=== PATIENT | female | born 1945 | race Caucasian/White ===

== ENCOUNTER 2019-03-13 12:53 | Inpatient (IN) | payer MEDICARE ==
[~2019-03-13] VITALS: Ht 154.9 cm; Wt 68.0 kg
[~2019-03-13 12:53] MED LIST: ONDA4TAB6 PO; SACC250C PO
[2019-03-13 14:09] LABS: BASOPHILS % (AUTO) 0.5 % (0-1); EOSINOPHILS # (AUTO) 0.3 X10'3 (0-0.9); EOSINOPHILS % (AUTO) 4.8 % (0-6); HEMATOCRIT 38.1 % (35.0-45.0); HEMOGLOBIN 12.9 g/dl (12.0-16.0); LYMPHOCYTES # (AUTO) 1.3 X10'3 (1.1-4.8); LYMPHOCYTES % (AUTO) 21.1 % (21-51); MEAN CORPUSCULAR HEMOGLOBIN 32.8 PG (27.0-31.0); MEAN CORPUSCULAR HGB CONC 33.8 g/dL (33.0-36.5); MEAN CORPUSCULAR VOLUME 97.1 FL (78-98); MEAN PLATELET VOLUME 8.2 FL (7.4-10.4); MONOCYTES # (AUTO) 0.5 X10'3 (0-0.9); NEUTROPHILS % (AUTO) 65.6 % (42-75); PLATELET COUNT 236 X10'3 (140-440); RED BLOOD COUNT 3.92 X10'6 (4.20-5.60); RED CELL DISTRIBUTION WIDTH 13.3 % (11.5-14.5); WHITE BLOOD COUNT 6.1 X10'3 (4.5-11.0)
[2019-03-13 14:16] LABS: ALANINE AMINOTRANSFERASE 30 U/L (12-78); ALBUMIN 3.7 G/DL (3.4-5.0); ALBUMIN/GLOBULIN RATIO 0.8 (1.1-1.5); ALKALINE PHOSPHATASE 72 IU/L (46-116); ANION GAP 7 (8-16); ASPARTATE AMINO TRANSFERASE 21 U/L (10-37); BILIRUBIN,TOTAL 0.3 MG/DL (0.1-1.0); BLOOD UREA NITROGEN 22 MG/DL (7-18); BUN/CREATININE RATIO 23.2 (6.6-38.0); CALCIUM 9.5 MG/DL (8.5-10.1); CHLORIDE 105 MMOL/L (99-107); CREATININE 0.95 MG/DL (0.40-0.90); GLUCOSE 115 MG/DL (70-104); POTASSIUM 3.9 MMOL/L (3.5-5.1); SODIUM 144 MMOL/L (135-145); TOTAL CARBON DIOXIDE 32.1 MMOL/L (24-32); TOTAL PROTEIN 8.2 G/DL (6.4-8.2); eGFR 58 ML/MIN
[2019-03-13 14:19] LABS: PARTIAL THROMBOPLASTIN TIME 27 SECONDS (22-32)
[2019-03-13] MEDS ORDERED: famotidine/PF 10 mg/ml inj IV ONE (14:40)
[2019-03-13] MEDS ORDERED: aspirin 325mg tablet PO ONE (14:40)
[2019-03-13] MEDS ORDERED: normal saline 1000ml 1,000 ML IV ONE (14:40)
[2019-03-13] MEDS ORDERED: mag hydrox/Alum hydrox/simeth 30ml oral suspension PO PRN (15:00)
[2019-03-13] MEDS ORDERED: magnesium hydroxide 30ml (MOM) UD suspension PO PRN (15:00)
[2019-03-13] MEDS ORDERED: acetaminophen 325mg tablet PO PRN (15:00)
[2019-03-13] MEDS ORDERED: ondansetron/PF 4mg/2ml inj IV PRN (15:00)
[2019-03-13] MEDS ORDERED: SPIR25TA5 PO (15:11)
[2019-03-13] MEDS ORDERED: FURO40TA4 PO (15:11)
[2019-03-13] MEDS ORDERED: OMEP-50 PO (15:11)
[2019-03-13] MEDS ORDERED: SERT100T10 PO (15:11)
[2019-03-13] MEDS ORDERED: MONT10TA24 PO (15:11)
[2019-03-13] MEDS ORDERED: LOSA100T57 PO (15:11)
[2019-03-13] MEDS ORDERED: CARV6.253 PO (15:11)
[2019-03-13] MEDS ORDERED: aminophylline 250mg/10ml inj. IV PRN (15:30)
[2019-03-13] MEDS ORDERED: metoprolol tartrate 1mg/ml inj IV PRN (15:30)
[2019-03-13] MEDS ORDERED: nitroGLYCERIN 0.4mg SUBLingual tab SL PRN (15:30)
[2019-03-13] MEDS ORDERED: regadenoson 0.4mg/5ml syringe IV PRN (15:30)
[2019-03-13] MEDS ORDERED: LORazepam 2 mg/ml vial IV PRN (15:40)
[2019-03-13] MEDS ORDERED: LORazepam 1 MG tablet PO PRN (15:40)
--- NOTE | 2019-03-13 17:50 | NUR ---
Patient in room ED 12. I have received report from Cem DAN and had the opportunity to ask questions and assume patient care.
[2019-03-13 18:00] VITALS: BP 164/78
--- NOTE | 2019-03-13 18:07 | NUR ---
Received patient from ED. Patient vitals taken and stable. Patient placed on tele monitor. Oriented to room and call light.
--- NOTE | 2019-03-13 18:30 | NUR ---
Patient in room PCU 3013. I have received report from Ayaka DAN and had the opportunity to ask questions and assume patient care with Phylicia DAN.
[2019-03-13] MEDS: carvedilol 6.25mg tablet PO SCH (21:10)
[2019-03-13 22:00] VITALS: BP 138/60
[2019-03-14] VITALS (18 sets, daily range): BP systolic 123–163; BP diastolic 50–100
[2019-03-14 02:45] LABS: BASOPHILS % (AUTO) 0.7 % (0-1); EOSINOPHILS # (AUTO) 0.3 X10'3 (0-0.9); HEMATOCRIT 33.5 % (35.0-45.0); HEMOGLOBIN 11.5 g/dl (12.0-16.0); LYMPHOCYTES # (AUTO) 1.5 X10'3 (1.1-4.8); LYMPHOCYTES % (AUTO) 27.5 % (21-51); MEAN CORPUSCULAR HEMOGLOBIN 32.9 PG (27.0-31.0); MEAN CORPUSCULAR HGB CONC 34.4 g/dL (33.0-36.5); MEAN CORPUSCULAR VOLUME 95.7 FL (78-98); MEAN PLATELET VOLUME 8.1 FL (7.4-10.4); MONOCYTES # (AUTO) 0.5 X10'3 (0-0.9); MONOCYTES % (AUTO) 9.8 % (2-12); PLATELET COUNT 198 X10'3 (140-440); RED BLOOD COUNT 3.51 X10'6 (4.20-5.60); RED CELL DISTRIBUTION WIDTH 13.2 % (11.5-14.5); WHITE BLOOD COUNT 5.3 X10'3 (4.5-11.0)
[2019-03-14 03:00] LABS: ALANINE AMINOTRANSFERASE 26 U/L (12-78); ALBUMIN/GLOBULIN RATIO 0.8 (1.1-1.5); ALKALINE PHOSPHATASE 55 IU/L (46-116); ANION GAP 7 (8-16); ASPARTATE AMINO TRANSFERASE 17 U/L (10-37); BILIRUBIN,TOTAL 0.3 MG/DL (0.1-1.0); BLOOD UREA NITROGEN 21 MG/DL (7-18); BUN/CREATININE RATIO 23.1 (6.6-38.0); CALCIUM 8.5 MG/DL (8.5-10.1); CHLORIDE 108 MMOL/L (99-107); CREATININE 0.91 MG/DL (0.40-0.90); GLUCOSE 92 MG/DL (70-104); POTASSIUM 3.8 MMOL/L (3.5-5.1); SODIUM 143 MMOL/L (135-145); TOTAL CARBON DIOXIDE 27.7 MMOL/L (24-32); TOTAL PROTEIN 6.6 G/DL (6.4-8.2); eGFR 61 ML/MIN
[2019-03-14 03:03] LABS: AMYLASE 15 U/L (25-115); LIPASE 127 U/L (73-393); MAGNESIUM 1.6 MG/DL (1.5-2.4); PHOSPHORUS 3.5 MG/DL (2.3-4.5)
--- NOTE | 2019-03-14 05:53 | NUR ---
Orientee documentation: I have reviewed and agree with all interventions, meds given, assessments performed and documented by Phylicia DAN.
--- NOTE | 2019-03-14 06:00 | NUR ---
Patient in room PCU 3013. I have received report from Ghislaine and had the opportunity to ask questions and assume patient care.
--- NOTE | 2019-03-14 06:29 | NUR ---
Problems reprioritized. Patient report given, questions answered & plan of care reviewed with Ayaka DAN and Rita DAN.
--- NOTE | 2019-03-14 06:30 | NUR ---
Problems reprioritized. Patient report given, questions answered & plan of care reviewed with Rita DAN.
[2019-03-14] MEDS: pantoprazole 40mg Tablet.DR PO SCH ×2 (07:40→08:00)
[2019-03-14] MEDS: montelukast 10mg tablet PO SCH (07:40)
[2019-03-14] MEDS: sertraline 50mg tablet PO SCH (07:40)
[2019-03-14] MEDS: losartan 50mg tablet PO SCH (08:00)
[2019-03-14] MEDS: enoxaparin 40mg/0.4ml syringe SUBCUT SCH (08:00)
[2019-03-14] MEDS: spironolactone 25 MG tablet PO SCH (08:00)
[2019-03-14] MEDS: carvedilol 6.25mg tablet PO SCH ×2 (08:00→19:41)
[2019-03-14] MEDS: furosemide 40mg tablet PO SCH (08:00)
--- NOTE | 2019-03-14 18:19 | NUR ---
Problems reprioritized. Patient report given, questions answered & plan of care reviewed with Raymundo & Ansley RN. Patient stable at time of transfer of care.
--- NOTE | 2019-03-14 19:14 | NUR ---
Patient in room PCU 3013b. I have received report from SY Marley and Rita RN and had the opportunity to ask questions and assume patient care. Patient awake for bedside report with family in room. Patient on room air and SL with 20G in right AC. Will continue to monitor closely.
[2019-03-15] VITALS (17 sets, daily range): BP systolic 125–155; BP diastolic 53–71
[2019-03-15 05:54] LABS: BASOPHILS % (AUTO) 0.8 % (0-1); EOSINOPHILS # (AUTO) 0.3 X10'3 (0-0.9); HEMATOCRIT 35.3 % (35.0-45.0); HEMOGLOBIN 12.1 g/dl (12.0-16.0); LYMPHOCYTES # (AUTO) 1.6 X10'3 (1.1-4.8); LYMPHOCYTES % (AUTO) 28.7 % (21-51); MEAN CORPUSCULAR HGB CONC 34.1 g/dL (33.0-36.5); MEAN CORPUSCULAR VOLUME 96.6 FL (78-98); MEAN PLATELET VOLUME 8.1 FL (7.4-10.4); MONOCYTES # (AUTO) 0.6 X10'3 (0-0.9); MONOCYTES % (AUTO) 10.7 % (2-12); NEUTROPHILS % (AUTO) 54.8 % (42-75); PLATELET COUNT 209 X10'3 (140-440); RED BLOOD COUNT 3.66 X10'6 (4.20-5.60); RED CELL DISTRIBUTION WIDTH 13.2 % (11.5-14.5); WHITE BLOOD COUNT 5.4 X10'3 (4.5-11.0)
[2019-03-15 06:20] LABS: ALANINE AMINOTRANSFERASE 25 U/L (12-78); ALBUMIN 2.9 G/DL (3.4-5.0); ALBUMIN/GLOBULIN RATIO 0.8 (1.1-1.5); ALKALINE PHOSPHATASE 55 IU/L (46-116); AMYLASE 16 U/L (25-115); ANION GAP 7 (8-16); ASPARTATE AMINO TRANSFERASE 16 U/L (10-37); BILIRUBIN,TOTAL 0.2 MG/DL (0.1-1.0); BLOOD UREA NITROGEN 17 MG/DL (7-18); BUN/CREATININE RATIO 22.4 (6.6-38.0); CHLORIDE 106 MMOL/L (99-107); CREATININE 0.76 MG/DL (0.40-0.90); GLUCOSE 112 MG/DL (70-104); LIPASE 169 U/L (73-393); PHOSPHORUS 3.9 MG/DL (2.3-4.5); POTASSIUM 4.1 MMOL/L (3.5-5.1); SODIUM 141 MMOL/L (135-145); TOTAL CARBON DIOXIDE 27.6 MMOL/L (24-32); TOTAL PROTEIN 6.7 G/DL (6.4-8.2); eGFR 75 ML/MIN
--- NOTE | 2019-03-15 06:26 | NUR ---
I have reviewed and agree with all interventions, assessments performed and documented by SY Panchal.
--- NOTE | 2019-03-15 06:26 | NUR ---
Problems reprioritized. Patient report given, questions answered & plan of care reviewed with Arleen DAN.
[2019-03-15 06:31] LABS: CALCIUM 9.7 MG/DL (8.5-10.1)
--- NOTE | 2019-03-15 06:39 | NUR ---
Patient in room PCU 3013. I have received report from Diana and had the opportunity to ask questions and assume patient care.
--- NOTE | 2019-03-15 06:40 | NUR ---
Patient in room PCU 3013. I have received report from Raymundo DAN and had the opportunity to ask questions and assume patient care. Patient awake in bed with no complaints at this time. All immediate needs met.
[2019-03-15] MEDS: montelukast 10mg tablet PO SCH (07:22)
[2019-03-15] MEDS: losartan 50mg tablet PO SCH (07:22)
[2019-03-15] MEDS: pantoprazole 40mg Tablet.DR PO SCH ×2 (07:22→08:00)
[2019-03-15] MEDS: furosemide 40mg tablet PO SCH (07:23)
[2019-03-15] MEDS: carvedilol 6.25mg tablet PO SCH ×2 (07:23→20:27)
[2019-03-15] MEDS: spironolactone 25 MG tablet PO SCH (07:24)
[2019-03-15] MEDS: sertraline 50mg tablet PO SCH (07:24)
[2019-03-15] MEDS: enoxaparin 40mg/0.4ml syringe SUBCUT SCH (07:26)
--- NOTE | 2019-03-15 12:16 | NUR ---
Paged Dr. Jhaveri: PAGER ID: [phone] MESSAGE: RE: Marisol Cruz [id number]. Patient complaining of headache. No orders for pain meds. Can we order Tylenol for pain? Thank you. Arleen
--- NOTE | 2019-03-15 12:19 | NUR ---
New order from Dr. Jhaveri: 650 mg PO tylenol for pain ONCE>
[2019-03-15] MEDS: acetaminophen 325mg tablet PO PRN ×2 (12:39→18:57)
[2019-03-15] MEDS ORDERED: nitroGLYCERIN-Tridil 50MG/D5W 250 ML IV ONE (15:12)
[2019-03-15] MEDS ORDERED: iohexol 350 MG/ML 50ML vial IV ONE ×2 (15:12→17:15)
[2019-03-15] MEDS ORDERED: heparin 1,000unit/ml 10ml vial 10 ML ONE (15:12)
[2019-03-15] MEDS ORDERED: LIDOcaine 1% (10mg/ml)w/preservative injection 20ml MDV ONE (15:12)
[2019-03-15] MEDS ORDERED: iohexol 350MG/ML 100ml bottle IV ONE (15:12)
[2019-03-15] MEDS ORDERED: fentaNYL/PF 50MCG/1 ML 2ML syringe ONE (16:46)
[2019-03-15] MEDS ORDERED: midazolam 2 mg/2 ml injection ONE (16:46)
[2019-03-15] MEDS ORDERED: normal saline 1000ml 1,000 ML IV ONE (18:10)
--- NOTE | 2019-03-15 18:30 | NUR ---
Problems reprioritized. Patient report given, questions answered & plan of care reviewed with Raymundo DAN. Patient stable at transfer of care.
--- NOTE | 2019-03-15 18:49 | NUR ---
Orientee documentation: I have reviewed and agree with all interventions, assessments performed and documented by Linda DAN. Orientee Medication Administration: For this medication-pass time frame, all medication were reviewed, dispensed, administered and documented per hospital policy by Linda DAN.
[2019-03-15 19:36] LABS: ISTAT Hct MIX 35 %PCV (35-48); ISTAT O2 SATURATION MIX VENOUS 70 % (60-80); ISTAT SOURCE MIX
[2019-03-15] MEDS ORDERED: acetaminophen 325mg tablet PO PRN (20:00)
--- NOTE | 2019-03-15 21:35 | NUR ---
Patient in room PCU 3013b. I have received report from SY Bacon and had the opportunity to ask questions and assume patient care. Patient awake for bedside report and on room air. 100 mL/NS infusing per provider order. Right cardiac catheterization dressing asymptomatic with no s/s of bleeding or bruising. Dorsalis pedis pulses palpable with good capillary refill. Family at bedside. Will continue to monitor closely.
[2019-03-15] MEDS ORDERED: HYDROcodone/acetaminophen 5mg/325mg tablet PO PRN (22:40)
--- NOTE | 2019-03-16 00:04 | NUR ---
Patient sat up at 2340. No s/s of bleeding or bruising at cath site. Dorsalis pedis pulses palpable. Patient alert and oriented with complaints of minor pain. Will continue to monitor closely.
[2019-03-16 00:30] VITALS: BP 110/56
[2019-03-16 03:00] VITALS: BP 110/56
[2019-03-16 06:00] VITALS: BP 144/70
--- NOTE | 2019-03-16 06:00 | NUR ---
Patient in room PCU 3013. I have received report from Raymundo DAN and had the opportunity to ask questions and assume patient care.
[2019-03-16 06:03] LABS: BASOPHILS % (AUTO) 0.5 % (0-1); EOSINOPHILS # (AUTO) 0.2 X10'3 (0-0.9); HEMATOCRIT 34.4 % (35.0-45.0); HEMOGLOBIN 11.7 g/dl (12.0-16.0); LYMPHOCYTES # (AUTO) 1.1 X10'3 (1.1-4.8); MEAN CORPUSCULAR HEMOGLOBIN 33.2 PG (27.0-31.0); MEAN CORPUSCULAR HGB CONC 34.1 g/dL (33.0-36.5); MEAN CORPUSCULAR VOLUME 97.4 FL (78-98); MONOCYTES # (AUTO) 0.5 X10'3 (0-0.9); MONOCYTES % (AUTO) 7.7 % (2-12); NEUTROPHILS # (AUTO) 5.1 X10'3 (1.8-7.7); NEUTROPHILS % (AUTO) 72.8 % (42-75); PLATELET COUNT 193 X10'3 (140-440); RED BLOOD COUNT 3.53 X10'6 (4.20-5.60)
[2019-03-16 06:39] LABS: ALANINE AMINOTRANSFERASE 25 U/L (12-78); ALBUMIN 2.9 G/DL (3.4-5.0); ALBUMIN/GLOBULIN RATIO 0.8 (1.1-1.5); ALKALINE PHOSPHATASE 48 IU/L (46-116); AMYLASE 14 U/L (25-115); ANION GAP 7 (8-16); ASPARTATE AMINO TRANSFERASE 16 U/L (10-37); BILIRUBIN,TOTAL 0.3 MG/DL (0.1-1.0); BLOOD UREA NITROGEN 12 MG/DL (7-18); BUN/CREATININE RATIO 17.4 (6.6-38.0); CALCIUM 8.5 MG/DL (8.5-10.1); CHLORIDE 110 MMOL/L (99-107); CHOL/HDL RATIO 3.9 (0.00-4.99); CHOLESTEROL 221 MG/DL (0-200); CREATININE 0.69 MG/DL (0.40-0.90); GLUCOSE 93 MG/DL (70-104); HDL CHOLESTEROL 57 MG/DL (35-60); LDL CHOLESTEROL 146 MG/DL (50-100); LIPASE 103 U/L (73-393); MAGNESIUM 1.7 MG/DL (1.5-2.4); PHOSPHORUS 3.4 MG/DL (2.3-4.5); POTASSIUM 3.8 MMOL/L (3.5-5.1); SODIUM 144 MMOL/L (135-145); TOTAL CARBON DIOXIDE 27.4 MMOL/L (24-32); TOTAL PROTEIN 6.5 G/DL (6.4-8.2); TRIGLYCERIDES 114 MG/DL (20-135); eGFR 84 ML/MIN
--- NOTE | 2019-03-16 06:53 | NUR ---
Problems reprioritized. Patient report given, questions answered & plan of care reviewed with SY Campos and SY Guajardo.
[2019-03-16] MEDS: pantoprazole 40mg Tablet.DR PO SCH ×2 (07:54→08:00)
[2019-03-16] MEDS: carvedilol 6.25mg tablet PO SCH (07:55)
[2019-03-16] MEDS: spironolactone 25 MG tablet PO SCH (07:55)
[2019-03-16] MEDS: montelukast 10mg tablet PO SCH (07:56)
[2019-03-16] MEDS: furosemide 40mg tablet PO SCH (07:56)
[2019-03-16] MEDS: losartan 50mg tablet PO SCH (07:56)
[2019-03-16] MEDS: sertraline 50mg tablet PO SCH (07:56)
--- NOTE | 2019-03-16 09:25 | NUR ---
Per Dr Jhaveri ok to not give second dose of Protonix ordered in the am as patient was already receiving 40mg.
--- NOTE | 2019-03-16 10:07 | NUR ---
Patient discharged stable to home. Discharge instructions given to patient verbally and written. Patient verbalized understanding. Peripheral IV x2 removed, cannulas intact. Tele box removed and returned to television anchor room. All personal belongings returned to patient. At patient's request I attempted to make a follow-up appointment with Dr Herrera. Dr Herrera's office stated they would call patient to schedule appointment. Patient informed. No new prescriptions. Patient wheeled out by staff to private vehicle accompanied by friend.
[2019-03-16] MEDS ORDERED: ATOR20TA66 PO (11:18)
[2019-03-21 07:36] LABS: ISTAT HGB ART 11.9 g/dl (12.0-16.0); ISTAT Hct ART 35 %PCV (35-48); ISTAT O2 SATURATION ARTERIAL 93 % (95-98); ISTAT SOURCE ART
== END 2019-03-16 10:21 | disposition home or self-care (01) | DRG 287 ==
LOC: ER 12:54 → ED HOLD 15:48 → PCU 3S 18:05 → OBSVTOIN 03-14 22:30
PROVIDERS: ADMIT Family Medicine; ATTEND Family Medicine
PROC: 4A02XM4 Measurement of Cardiac Total Activity, External Approach (ICD-10-PCS; 2019-03-14)
PROC: 3E033HZ Introduction of Radioactive Substance into Peripheral Vein, Percutaneous Approach (ICD-10-PCS; 2019-03-14)
PROC: 4A023N8 Measurement of Cardiac Sampling and Pressure, Bilateral, Percutaneous Approach (ICD-10-PCS; principal; 2019-03-15)
PROC: B2111ZZ Fluoroscopy of Multiple Coronary Arteries using Low Osmolar Contrast (ICD-10-PCS; 2019-03-15)
PROC: B2151ZZ Fluoroscopy of Left Heart using Low Osmolar Contrast (ICD-10-PCS; 2019-03-15)
DX: R07.89 Other chest pain (principal); I42.9 Cardiomyopathy, unspecified; I25.10 Atherosclerotic heart disease of native coronary artery without angina pectoris; I10 Essential (primary) hypertension; I44.7 Left bundle-branch block, unspecified; K21.9 Gastro-esophageal reflux disease without esophagitis; Z82.49 Family history of ischemic heart disease and other diseases of the circulatory system; Z83.3 Family history of diabetes mellitus; Z85.3 Personal history of malignant neoplasm of breast; Z90.12 Acquired absence of left breast and nipple; Z88.8 Allergy status to other drugs, medicaments and biological substances; Z79.899 Other long term (current) drug therapy
CPT/HCPCS: 36415; 71045; 78452; 80053; 80061; 82150; 82803; 82948; 83690; 83735; 84100; 84484; 85014; 85025; 85610; 85730; 87081; 93005; 93017; 93460; 96374; 99152; 99153; 99285; A4620; A6258; A9500; C1760; C1769; G0378; J0280; J1644; J2001; J2250; J2785; J3010; J3490; Q9967

== ENCOUNTER 2019-03-17 08:32 | Inpatient (IN) | payer MEDICARE ==
[~2019-03-17] VITALS: Ht 162.6 cm; Wt 70.0 kg
[~2019-03-17 08:32] MED LIST changes: +ATOR20TA66 PO; +CARV6.253 PO; +FURO40TA4 PO; +LOSA100T57 PO; +MONT10TA24 PO; +OMEP-50 PO; -ONDA4TAB6 PO; -SACC250C PO; +SERT100T10 PO; +SPIR25TA5 PO
[2019-03-17 09:31] LABS: BASOPHILS % (AUTO) 0.2 % (0-1); EOSINOPHILS % (AUTO) 0 % (0-6); HEMOGLOBIN 12.3 g/dl (12.0-16.0); LYMPHOCYTES # (AUTO) 0.8 X10'3 (1.1-4.8); LYMPHOCYTES % (AUTO) 7.9 % (21-51); MEAN CORPUSCULAR HEMOGLOBIN 32.7 PG (27.0-31.0); MEAN CORPUSCULAR HGB CONC 34.1 g/dL (33.0-36.5); MEAN CORPUSCULAR VOLUME 95.9 FL (78-98); MEAN PLATELET VOLUME 7.7 FL (7.4-10.4); MONOCYTES # (AUTO) 0.6 X10'3 (0-0.9); MONOCYTES % (AUTO) 6.2 % (2-12); NEUTROPHILS # (AUTO) 8.9 X10'3 (1.8-7.7); NEUTROPHILS % (AUTO) 85.7 % (42-75); PLATELET COUNT 206 X10'3 (140-440); RED BLOOD COUNT 3.75 X10'6 (4.20-5.60); RED CELL DISTRIBUTION WIDTH 13.1 % (11.5-14.5); WHITE BLOOD COUNT 10.5 X10'3 (4.5-11.0)
[2019-03-17 09:44] LABS: PARTIAL THROMBOPLASTIN TIME 23 SECONDS (22-32)
[2019-03-17 09:53] LABS: ALANINE AMINOTRANSFERASE 29 U/L (12-78); ALBUMIN 3.2 G/DL (3.4-5.0); ALBUMIN/GLOBULIN RATIO 0.8 (1.1-1.5); ALKALINE PHOSPHATASE 52 IU/L (46-116); ANION GAP 9 (8-16); ASPARTATE AMINO TRANSFERASE 24 U/L (10-37); BILIRUBIN,TOTAL 0.4 MG/DL (0.1-1.0); BLOOD UREA NITROGEN 16 MG/DL (7-18); BUN/CREATININE RATIO 18.8 (6.6-38.0); CALCIUM 8.8 MG/DL (8.5-10.1); CHLORIDE 105 MMOL/L (99-107); CREATININE 0.85 MG/DL (0.40-0.90); GLUCOSE 99 MG/DL (70-104); POTASSIUM 3.9 MMOL/L (3.5-5.1); SODIUM 141 MMOL/L (135-145); TOTAL CARBON DIOXIDE 27.5 MMOL/L (24-32); TOTAL PROTEIN 7.3 G/DL (6.4-8.2); eGFR 66 ML/MIN
[2019-03-17 09:54] LABS: TROPONIN I 0.07 NG/ML (0.0-0.05)
--- NOTE | 2019-03-17 10:09 | NUR ---
TELE NEURO CONSULT INITIATED
--- NOTE | 2019-03-17 10:46 | NUR ---
NEURO TELE DONE.
[2019-03-17] MEDS ORDERED: iohexol 350MG/ML 100ml bottle IV ONE (11:47)
--- NOTE | 2019-03-17 12:27 | NUR ---
notified Gonzales that troponin was not ordered. New orders placed.
[2019-03-17] MEDS ORDERED: magnesium 4gm in 100ml NS 100 ML IV PRN (14:30)
[2019-03-17] MEDS ORDERED: potassium Cl 20 mEq SR tablet PO PRN ×2 (14:30)
[2019-03-17] MEDS ORDERED: ondansetron/PF 4mg/2ml inj IV PRN (14:30)
[2019-03-17] MEDS ORDERED: acetaminophen 325mg tablet PO PRN (14:30)
[2019-03-17] MEDS ORDERED: potassium CL 10mEq/100ml bag 100 ML IV PRN ×2 (14:30)
[2019-03-17] MEDS ORDERED: mag hydrox/Alum hydrox/simeth 30ml oral suspension PO PRN (14:30)
[2019-03-17] MEDS ORDERED: magnesium 2GM in 50ml NS 50 ML IV PRN (14:30)
[2019-03-17] MEDS ORDERED: docusate sod 100mg capsule PO PRN (14:30)
[2019-03-17 16:20] VITALS: BP 145/62
[2019-03-17 18:00] VITALS: BP 158/74
[2019-03-17 18:58] LABS: CLARITY,URINE CLEAR (Clear); COLOR,URINE YELLOW (Yellow); GLUCOSE, URINE NEGATIVE (Neg); KETONES,URINE 15 mg/dl (Neg); LEUKOCYTE ESTERASE ,URINE NEGATIVE (Neg); NITRITES, URINE NEGATIVE (Neg); OCCULT BLOOD,URINE TRACE-INTACT (Neg); PROTEIN,URINE NEGATIVE (Neg); UROBILINOGEN,URINE 0.2 E.U/dL (0.2-1.0)
--- NOTE | 2019-03-17 18:58 | NUR ---
Patient report given to Kia DAN
[2019-03-17 19:17] LABS: UA COLLECTION TYPE CLN CATCH MIDSTREAM
[2019-03-17 19:51] LABS: BACTERIA,URINE NONE SEEN /HPF (Neg); MUCUS STRANDS NONE SEEN /LPF (Neg); RBC,URINE 0-2 /HPF (0-2); SQUAMOUS EPITHELIAL CELL,UR FEW /LPF (FEW); WBC,URINE 0-4 /HPF (0-4)
[2019-03-17] MEDS: carvedilol 6.25mg tablet PO SCH (20:08)
[2019-03-17 20:17] VITALS: BP 137/66
--- NOTE | 2019-03-17 22:00 | NUR ---
pt c/o feeling flushed and seeing an "aura" of sparkles. 2 seconds of not talking, then patient able to talk - "I guess nothing is going to happen. I'm just so scared." reassurance given. no further aura noted
--- NOTE | 2019-03-17 23:01 | NUR ---
seal delivery vehicle team technician called with low oxygen saturation of 84-86%, and I discovered that her her oxygen NC was not in her nose so I re applied the nasal cannulae of oxygen into her nose and she went up to 93-95% spo2.
[2019-03-17 23:30] VITALS: BP 120/54
--- NOTE | 2019-03-18 01:19 | NUR ---
pt stated she lost her sense of smell a few years ago
[2019-03-18 02:00] VITALS: BP 122/49
[2019-03-18 06:00] VITALS: BP 139/61
--- NOTE | 2019-03-18 06:30 | NUR ---
reported to days. noted all tests done and pending results
[2019-03-18 06:43] LABS: BASOPHILS % (AUTO) 0.3 % (0-1); EOSINOPHILS # (AUTO) 0.1 X10'3 (0-0.9); EOSINOPHILS % (AUTO) 1.6 % (0-6); HEMATOCRIT 34.3 % (35.0-45.0); HEMOGLOBIN 11.7 g/dl (12.0-16.0); LYMPHOCYTES % (AUTO) 13.2 % (21-51); MEAN CORPUSCULAR HEMOGLOBIN 33.1 PG (27.0-31.0); MEAN CORPUSCULAR VOLUME 97.3 FL (78-98); MEAN PLATELET VOLUME 8.4 FL (7.4-10.4); MONOCYTES # (AUTO) 0.6 X10'3 (0-0.9); MONOCYTES % (AUTO) 8.1 % (2-12); NEUTROPHILS # (AUTO) 5.9 X10'3 (1.8-7.7); NEUTROPHILS % (AUTO) 76.8 % (42-75); PLATELET COUNT 183 X10'3 (140-440); RED BLOOD COUNT 3.53 X10'6 (4.20-5.60); RED CELL DISTRIBUTION WIDTH 13.2 % (11.5-14.5); WHITE BLOOD COUNT 7.7 X10'3 (4.5-11.0)
--- NOTE | 2019-03-18 06:59 | NUR ---
Patient in room ORTHO 4020. I have received report from Autumn DAN and had the opportunity to ask questions and assume patient care.
[2019-03-18 07:40] LABS: ALANINE AMINOTRANSFERASE 30 U/L (12-78); ALBUMIN 2.9 G/DL (3.4-5.0); ALBUMIN/GLOBULIN RATIO 0.7 (1.1-1.5); ALKALINE PHOSPHATASE 47 IU/L (46-116); ANION GAP 7 (8-16); ASPARTATE AMINO TRANSFERASE 33 U/L (10-37); BILIRUBIN,TOTAL 0.4 MG/DL (0.1-1.0); BLOOD UREA NITROGEN 9 MG/DL (7-18); BUN/CREATININE RATIO 12.2 (6.6-38.0); CALCIUM 8.8 MG/DL (8.5-10.1); CHLORIDE 107 MMOL/L (99-107); CHOL/HDL RATIO 3.5 (0.00-4.99); CHOLESTEROL 214 MG/DL (0-200); CREATININE 0.74 MG/DL (0.40-0.90); GLUCOSE 102 MG/DL (70-104); HDL CHOLESTEROL 62 MG/DL (35-60); LDL CHOLESTEROL 142 MG/DL (50-100); MAGNESIUM 2.1 MG/DL (1.5-2.4); POTASSIUM 3.7 MMOL/L (3.5-5.1); SODIUM 143 MMOL/L (135-145); TOTAL CARBON DIOXIDE 29.3 MMOL/L (24-32); TOTAL PROTEIN 6.8 G/DL (6.4-8.2); TRIGLYCERIDES 68 MG/DL (20-135); eGFR 77 ML/MIN
[2019-03-18] MEDS: K and/or MAG REPLACEMENT MC SCH (08:40)
[2019-03-18] MEDS: furosemide 40mg tablet PO SCH (08:42)
[2019-03-18] MEDS: montelukast 10mg tablet PO SCH (08:43)
[2019-03-18] MEDS: pantoprazole 40mg Tablet.DR PO SCH (08:43)
[2019-03-18] MEDS: sertraline 50mg tablet PO SCH (08:43)
[2019-03-18] MEDS: losartan 50mg tablet PO SCH (08:43)
[2019-03-18] MEDS: atorvastatin 20mg tablet PO SCH (08:43)
[2019-03-18] MEDS: carvedilol 6.25mg tablet PO SCH ×2 (08:44→21:33)
[2019-03-18] MEDS: spironolactone 25 MG tablet PO SCH (08:44)
[2019-03-18] MEDS: aspirin 325mg tablet, delayed-release (Ecotrin) PO SCH (08:44)
[2019-03-18 10:00] VITALS: BP 126/53
[2019-03-18 14:00] VITALS: BP 141/72
--- NOTE | 2019-03-18 18:22 | NUR ---
Problems reprioritized. Patient report given, questions answered & plan of care reviewed with Mansi DAN.
[2019-03-18 18:36] VITALS: BP_SYST 144; BP_DIAS 5; BP_DIAS 65
[2019-03-18] MEDS: levetiracetam 250mg tablet PO SCH (21:33)
[2019-03-18 22:04] VITALS: BP 134/53
[2019-03-19 02:00] VITALS: BP 125/60
[2019-03-19 06:00] VITALS: BP 147/70
--- NOTE | 2019-03-19 06:46 | NUR ---
Patient in room ORTHO 4020. I have received report from Autumn Howell and had the opportunity to ask questions and assume patient care.
[2019-03-19 07:03] LABS: BASOPHILS % (AUTO) 0.7 % (0-1); EOSINOPHILS # (AUTO) 0.4 X10'3 (0-0.9); EOSINOPHILS % (AUTO) 5.2 % (0-6); HEMATOCRIT 33.7 % (35.0-45.0); HEMOGLOBIN 11.7 g/dl (12.0-16.0); LYMPHOCYTES % (AUTO) 14.5 % (21-51); MEAN CORPUSCULAR HEMOGLOBIN 33.4 PG (27.0-31.0); MEAN CORPUSCULAR HGB CONC 34.7 g/dL (33.0-36.5); MEAN CORPUSCULAR VOLUME 96.2 FL (78-98); MEAN PLATELET VOLUME 8.2 FL (7.4-10.4); MONOCYTES # (AUTO) 0.6 X10'3 (0-0.9); MONOCYTES % (AUTO) 8.9 % (2-12); NEUTROPHILS # (AUTO) 4.9 X10'3 (1.8-7.7); NEUTROPHILS % (AUTO) 70.7 % (42-75); PLATELET COUNT 180 X10'3 (140-440); WHITE BLOOD COUNT 6.9 X10'3 (4.5-11.0)
[2019-03-19 07:20] LABS: ALANINE AMINOTRANSFERASE 30 U/L (12-78); ALBUMIN 2.8 G/DL (3.4-5.0); ALBUMIN/GLOBULIN RATIO 0.7 (1.1-1.5); ALKALINE PHOSPHATASE 47 IU/L (46-116); ANION GAP 7 (8-16); ASPARTATE AMINO TRANSFERASE 24 U/L (10-37); BILIRUBIN,TOTAL 0.5 MG/DL (0.1-1.0); BLOOD UREA NITROGEN 10 MG/DL (7-18); BUN/CREATININE RATIO 13.7 (6.6-38.0); CALCIUM 8.4 MG/DL (8.5-10.1); CHLORIDE 107 MMOL/L (99-107); CREATININE 0.73 MG/DL (0.40-0.90); GLUCOSE 94 MG/DL (70-104); POTASSIUM 3.8 MMOL/L (3.5-5.1); SODIUM 143 MMOL/L (135-145); TOTAL PROTEIN 6.6 G/DL (6.4-8.2); eGFR 79 ML/MIN
[2019-03-19] MEDS: K and/or MAG REPLACEMENT MC SCH (08:00)
[2019-03-19] MEDS: carvedilol 6.25mg tablet PO SCH (08:19)
[2019-03-19] MEDS: furosemide 40mg tablet PO SCH (08:21)
[2019-03-19] MEDS: sertraline 50mg tablet PO SCH (08:21)
[2019-03-19] MEDS: pantoprazole 40mg Tablet.DR PO SCH (08:21)
[2019-03-19] MEDS: spironolactone 25 MG tablet PO SCH (08:22)
[2019-03-19] MEDS: levetiracetam 250mg tablet PO SCH (08:22)
[2019-03-19] MEDS: losartan 50mg tablet PO SCH (08:22)
[2019-03-19] MEDS: atorvastatin 20mg tablet PO SCH (08:22)
[2019-03-19] MEDS: montelukast 10mg tablet PO SCH (08:23)
[2019-03-19] MEDS: aspirin 325mg tablet, delayed-release (Ecotrin) PO SCH (08:23)
[2019-03-19 10:00] VITALS: BP 98/74
[2019-03-19] MEDS ORDERED: ASPI81TA52 PO (11:04)
[2019-03-19] MEDS ORDERED: ATOR20TA PO (11:04)
--- NOTE | 2019-03-19 11:22 | NUR ---
[facility]ako hospitalist [phone] MESSAGE: RE:[id number] Eliane Cruz patients family stated there may have been 2-3 other minor seizure episodes in the last 3 weeks before the major one, will continue to monitor Addendum: 03/19/19 at 1127 by Mitchel Gill RN Keppra will be ordered for patient to d/c home with Keppra 500mg BID PO
[2019-03-19] MEDS ORDERED: KEP500T PO (11:33)
--- NOTE | 2019-03-19 13:49 | NUR ---
Patient discharged to home with family, IV taken out and Tele box taken off, all belongings sent with home, new prescriptions call into pharmacy, patient stable upon discharge
== END 2019-03-19 13:59 | disposition home or self-care (01) | DRG 101 ==
LOC: ER 08:33 → ED HOLD 14:50 → ORTHO 4S 16:05
PROVIDERS: ADMIT Family Medicine; ATTEND Family Medicine
PROC: 4A10X4Z Monitoring of Central Nervous Electrical Activity, External Approach (ICD-10-PCS; principal; 2019-03-17)
DX: R56.9 Unspecified convulsions (principal); I42.9 Cardiomyopathy, unspecified; I10 Essential (primary) hypertension; F32.9 Major depressive disorder, single episode, unspecified; G62.9 Polyneuropathy, unspecified; R32 Unspecified urinary incontinence; G43.109 Migraine with aura, not intractable, without status migrainosus; M54.5 Low back pain; M25.512 Pain in left shoulder; K21.9 Gastro-esophageal reflux disease without esophagitis; Z79.82 Long term (current) use of aspirin; Z82.49 Family history of ischemic heart disease and other diseases of the circulatory system; Z83.3 Family history of diabetes mellitus; Z85.3 Personal history of malignant neoplasm of breast; Z79.899 Other long term (current) drug therapy; Z88.8 Allergy status to other drugs, medicaments and biological substances; Z90.12 Acquired absence of left breast and nipple
CPT/HCPCS: 36415; 70450; 70496; 70498; 70544; 70551; 71045; 72100; 73502; 74176; 80053; 80061; 81001; 83605; 83735; 84484; 85025; 85610; 85730; 87040; 87081; 93005; 93306; 95816; 97162; 97530; 99285; G0378; Q9967

== ENCOUNTER 2022-07-28 11:23 | Observation (INO) | payer MEDICARE, OTHER ==
[~2022-07-28] VITALS: Ht 154.9 cm; Wt 63.0 kg
[~2022-07-28 11:23] MED LIST changes: +ASPI81TA52 PO; +ATOR20TA PO; -ATOR20TA66 PO; +KEP500T PO; +MONT-40 PO; -MONT10TA24 PO; -OMEP-50 PO; +OMEP20CA16 PO; +SERT-434 PO; -SERT100T10 PO
[2022-07-28 11:41] LABS: BASOPHILS % (AUTO) 0.2 % (0-1); EOSINOPHILS % (AUTO) 0.2 % (0-6); HEMATOCRIT 38.2 % (35.0-45.0); HEMOGLOBIN 12.8 g/dl (12.0-16.0); LYMPHOCYTES # (AUTO) 1.2 X10'3 (1.1-4.8); LYMPHOCYTES % (AUTO) 10.9 % (21-51); MEAN CORPUSCULAR HEMOGLOBIN 32.9 PG (27.0-31.0); MEAN CORPUSCULAR HGB CONC 33.5 g/dL (33.0-36.5); MEAN CORPUSCULAR VOLUME 97.9 FL (78-98); MEAN PLATELET VOLUME 7.6 FL (7.4-10.4); MONOCYTES # (AUTO) 1.1 X10'3 (0-0.9); MONOCYTES % (AUTO) 10.4 % (2-12); NEUTROPHILS # (AUTO) 8.3 X10'3 (1.8-7.7); NEUTROPHILS % (AUTO) 78.3 % (42-75); PLATELET COUNT 229 X10'3 (140-440); RED CELL DISTRIBUTION WIDTH 13.2 % (11.5-14.5); WHITE BLOOD COUNT 10.6 X10'3 (4.5-11.0)
[2022-07-28 11:57] LABS: ALANINE AMINOTRANSFERASE 27 U/L (12-78); ALBUMIN/GLOBULIN RATIO 1.1 (1.1-1.5); ALKALINE PHOSPHATASE 72 IU/L (46-116); ANION GAP 6 (8-16); ASPARTATE AMINO TRANSFERASE 34 U/L (10-37); BILIRUBIN,TOTAL 0.4 MG/DL (0.1-1.0); BLOOD UREA NITROGEN 23 MG/DL (7-18); CALCIUM 9.6 MG/DL (8.5-10.1); CHLORIDE 97 MMOL/L (99-107); CREATININE 0.92 MG/DL (0.40-0.90); GLUCOSE 127 MG/DL (70-104); SODIUM 136 MMOL/L (135-145); TOTAL CARBON DIOXIDE 32.9 MMOL/L (24-32); TOTAL PROTEIN 7.8 G/DL (6.4-8.2); eGFR 60 ML/MIN
[2022-07-28 12:03] LABS: MAGNESIUM 2.2 MG/DL (1.5-2.4)
[2022-07-28] MEDS ORDERED: aspirin 81mg tab.chew PO ONE (12:50)
[2022-07-28] MEDS ORDERED: PERFLUTREN PROTEIN-A MICROSPHR (Optison) 0.22 MG/ML 3ML VIAL IV ONE (13:10)
[2022-07-28] MEDS ORDERED: morphine 2 MG/ML inj. syringe IV PRN (13:10)
[2022-07-28] MEDS ORDERED: HYDROcodone/acetaminophen 5mg/325mg tablet PO PRN (13:10)
[2022-07-28] MEDS ORDERED: ondansetron/PF 4mg/2ml inj IV PRN (13:10)
[2022-07-28] MEDS ORDERED: potassium Cl 40MEQ/1/2NS 520ml 520 ML IV PRN (13:10)
[2022-07-28] MEDS ORDERED: magnesium 4gm in 100ml NS 100 ML IV PRN (13:10)
[2022-07-28] MEDS ORDERED: magnesium Cl slow-release 64mg tablet PO PRN (13:10)
[2022-07-28] MEDS ORDERED: acetaminophen 325mg tablet PO PRN (13:10)
[2022-07-28] MEDS ORDERED: potassium Cl 20 mEq SR tablet PO PRN ×2 (13:10)
--- NOTE | 2022-07-28 13:26 | NUR ---
Dr. Sidhu at bedside, talking to the patient
[2022-07-28 13:58] LABS: MAGNESIUM 2.3 MG/DL (1.5-2.4); POTASSIUM 3.9 MMOL/L (3.5-5.1)
[2022-07-28] MEDS ORDERED: ERGO500093 PO (14:54)
[2022-07-28] MEDS ORDERED: LEVO15TA6 PO (14:55)
[2022-07-28] MEDS ORDERED: ACET-76 PO (14:56)
[2022-07-28 15:45] VITALS: BP 155/73
[2022-07-28] MEDS ORDERED: non-formulary drug (Acetaminophen 1 TAB) PO PRN (16:35)
[2022-07-28 18:00] VITALS: BP 123/52
[2022-07-28] MEDS: carvedilol 6.25mg tablet PO SCH (19:55)
[2022-07-28] MEDS: K and/or MAG REPLACEMENT MC SCH (19:59)
[2022-07-28 22:00] VITALS: BP 117/48
[2022-07-29 02:57] VITALS: BP 136/66
[2022-07-29 03:19] VITALS: BP 136/66
[2022-07-29 06:27] LABS: ALBUMIN 3.5 G/DL (3.4-5.0); ANION GAP 5 (8-16); BLOOD UREA NITROGEN 19 MG/DL (7-18); BUN/CREATININE RATIO 23.5 (6.6-38.0); CALCIUM 9.3 MG/DL (8.5-10.1); CHLORIDE 100 MMOL/L (99-107); CREATININE 0.81 MG/DL (0.40-0.90); GLUCOSE 121 MG/DL (70-104); MAGNESIUM 2.1 MG/DL (1.5-2.4); POTASSIUM 3.7 MMOL/L (3.5-5.1); SODIUM 137 MMOL/L (135-145); TOTAL CARBON DIOXIDE 32.1 MMOL/L (24-32); eGFR 69 ML/MIN
[2022-07-29 06:29] LABS: BASOPHILS % (AUTO) 0.3 % (0-1); EOSINOPHILS # (AUTO) 0.1 X10'3 (0-0.9); EOSINOPHILS % (AUTO) 1.1 % (0-6); HEMATOCRIT 36.8 % (35.0-45.0); HEMOGLOBIN 12.4 g/dl (12.0-16.0); LYMPHOCYTES # (AUTO) 1.2 X10'3 (1.1-4.8); LYMPHOCYTES % (AUTO) 15.4 % (21-51); MEAN CORPUSCULAR HEMOGLOBIN 32.8 PG (27.0-31.0); MEAN CORPUSCULAR HGB CONC 33.7 g/dL (33.0-36.5); MEAN CORPUSCULAR VOLUME 97.4 FL (78-98); MEAN PLATELET VOLUME 8.2 FL (7.4-10.4); MONOCYTES # (AUTO) 0.8 X10'3 (0-0.9); MONOCYTES % (AUTO) 10.1 % (2-12); NEUTROPHILS # (AUTO) 5.8 X10'3 (1.8-7.7); NEUTROPHILS % (AUTO) 73.1 % (42-75); PLATELET COUNT 199 X10'3 (140-440); RED BLOOD COUNT 3.78 X10'6 (4.20-5.60); RED CELL DISTRIBUTION WIDTH 13.5 % (11.5-14.5)
--- NOTE | 2022-07-29 06:31 | NUR ---
Problems reprioritized. Patient report given, questions answered & plan of care reviewed with Guero DAN.
[2022-07-29 07:34] VITALS: BP 145/67
[2022-07-29] MEDS ORDERED: montelukast 10mg tablet PO SCH (08:00)
[2022-07-29] MEDS ORDERED: spironolactone 25 MG tablet PO SCH (08:00)
[2022-07-29] MEDS ORDERED: pantoprazole 40mg Tablet.DR PO SCH (08:00)
[2022-07-29] MEDS ORDERED: LEVOMEFOLATE CALCIUM PO SCH (08:00)
[2022-07-29] MEDS ORDERED: losartan 50mg tablet PO SCH (08:00)
[2022-07-29] MEDS ORDERED: sertraline 50mg tablet PO SCH (08:00)
[2022-07-29] MEDS ORDERED: atorvastatin 20mg tablet PO SCH (08:00)
[2022-07-29] MEDS ORDERED: furosemide 40mg tablet PO SCH (08:00)
[2022-07-29] MEDS: K and/or MAG REPLACEMENT MC SCH (08:00)
[2022-07-29] MEDS: carvedilol 6.25mg tablet PO SCH (08:47)
--- NOTE | 2022-07-29 09:31 | NUR ---
Paged EEG department to get study completed, Dr Sidhu stated pt could be discharged after EEG is completed.
--- NOTE | 2022-07-29 11:36 | NUR ---
Paged EEG again to try and plan for DC after EEG completed.
[2022-07-29 12:19] VITALS: BP 135/68
--- NOTE | 2022-07-29 12:50 | NUR ---
PAGER ID: [phone] MESSAGE: Anthony [phone], EEG is not available until 07/31. Did you want to discharge the pt? Guero [phone]
--- NOTE | 2022-07-29 14:54 | NUR ---
PAGER ID: [phone] MESSAGE: Anthony Puri1, Pt and family is curious about discharge or plan for today. Guero [phone]
--- NOTE | 2022-07-29 16:21 | NUR ---
Pt has been DC'd as per 's orders. Pt was unhooked from all tele and IV's. Education was provided to pt and family in room and all questions were answered. All belongings were gathered by family and pt. Pt will follow up with Javier this week. Pt was wheeled down to lobby by care staff, and pt was driven home by family in a private vehicle.
== END 2022-07-29 15:45 | disposition home or self-care (01) ==
LOC: ER 11:24 → ED HOLD 13:09 → INTOOBSV 13:09 → ED HOLD 13:21 → UNDOADMIN 13:21 → PCU 3S 14:24 → ED HOLD 14:24
PROVIDERS: ADMIT Internal Medicine; ATTEND Internal Medicine
DX: R07.89 Other chest pain (principal); G40.909 Epilepsy, unspecified, not intractable, without status epilepticus; I42.7 Cardiomyopathy due to drug and external agent; I11.0 Hypertensive heart disease with heart failure; I50.23 Acute on chronic systolic (congestive) heart failure; E78.5 Hyperlipidemia, unspecified; F32.A Depression, unspecified; K21.9 Gastro-esophageal reflux disease without esophagitis; I25.119 Atherosclerotic heart disease of native coronary artery with unspecified angina pectoris; T45.1X5A Adverse effect of antineoplastic and immunosuppressive drugs, initial encounter; Z90.12 Acquired absence of left breast and nipple; Z85.3 Personal history of malignant neoplasm of breast; Z79.899 Other long term (current) drug therapy
CPT/HCPCS: 36415; 71045; 80048; 80053; 83735; 83880; 84132; 84484; 85025; 87081; 93005; 93306; 99285; G0378

== ENCOUNTER 2023-10-01 09:49 | Emergency (ER) | payer MEDICARE, OTHER ==
[~2023-10-01] VITALS: Ht 154.9 cm; Wt 75.0 kg
[~2023-10-01 09:49] MED LIST changes: +ACET-76 PO; -ASPI81TA52 PO; +ERGO500093 PO; -KEP500T PO; +LEVO15TA6 PO; -LOSA100T57 PO; +LOSA100T58 PO
[2023-10-01] MEDS: normal saline 1000ml 1,000 ML IV ONE (10:10)
[2023-10-01 10:54] LABS: BASOPHILS # (AUTO) 0.1 X10'3 (0-0.2); BASOPHILS % (AUTO) 0.9 % (0-1); EOSINOPHILS # (AUTO) 0.1 X10'3 (0-0.9); EOSINOPHILS % (AUTO) 1.4 % (0-6); HEMATOCRIT 38.4 % (35.0-45.0); HEMOGLOBIN 12.8 g/dl (12.0-16.0); LYMPHOCYTES # (AUTO) 1.4 X10'3 (1.1-4.8); LYMPHOCYTES % (AUTO) 24.8 % (21-51); MEAN CORPUSCULAR HEMOGLOBIN 32.4 PG (27.0-31.0); MEAN CORPUSCULAR HGB CONC 33.3 g/dL (33.0-36.5); MEAN CORPUSCULAR VOLUME 97.2 FL (78-98); MONOCYTES # (AUTO) 0.4 X10'3 (0-0.9); MONOCYTES % (AUTO) 7.8 % (2-12); NEUTROPHILS # (AUTO) 3.7 X10'3 (1.8-7.7); NEUTROPHILS % (AUTO) 65.1 % (42-75); PLATELET COUNT 258 X10'3 (140-440); RED BLOOD COUNT 3.95 X10'6 (4.20-5.60); RED CELL DISTRIBUTION WIDTH 13.4 % (11.5-14.5); WHITE BLOOD COUNT 5.7 X10'3 (4.5-11.0)
[2023-10-01] MEDS: levetiracetam 250mg tablet PO ONE (11:28)
[2023-10-01 11:31] VITALS: O2SAT 98
[2023-10-01 11:57] LABS: ALANINE AMINOTRANSFERASE 22 U/L (12-78); ALBUMIN 3.1 G/DL (3.4-5.0); ALBUMIN/GLOBULIN RATIO 0.8 (1.1-1.5); ALKALINE PHOSPHATASE 56 IU/L (46-116); ANION GAP 6 (8-16); ASPARTATE AMINO TRANSFERASE 15 U/L (10-37); BILIRUBIN,TOTAL 0.4 MG/DL (0.1-1.0); BLOOD UREA NITROGEN 22 MG/DL (7-18); BUN/CREATININE RATIO 22.7 (10.0-20.0); CALCIUM 9.1 MG/DL (8.5-10.1); CHLORIDE 104 MMOL/L (99-107); CREATININE 0.97 MG/DL (0.40-0.90); GLUCOSE 122 MG/DL (70-104); POTASSIUM 4.1 MMOL/L (3.5-5.1); SODIUM 140 MMOL/L (135-145); TOTAL CARBON DIOXIDE 29.9 MMOL/L (24-32); TOTAL PROTEIN 6.9 G/DL (6.4-8.2); eCRCL 38 ML/MIN; eGFR 56 ML/MIN
[2023-10-01 12:03] LABS: BILIRUBIN,URINE NEGATIVE (Neg); CLARITY,URINE CLOUDY (Clear); COLOR,URINE YELLOW (Yellow); GLUCOSE, URINE NEGATIVE (Neg); KETONES,URINE 15 mg/dl (Neg); LEUKOCYTE ESTERASE ,URINE TRACE (Neg); NITRITES, URINE POSITIVE (Neg); OCCULT BLOOD,URINE NEGATIVE (Neg); PH,URINE 7.5 (4.8-8.0); PROTEIN,URINE NEGATIVE (Neg); UROBILINOGEN,URINE 0.2 E.U/dL (0.2-1.0)
[2023-10-01 12:14] LABS: URINE AMPHETAMINE SCREEN NEGATIVE (Neg); URINE BARBITUATE SCREEN NEGATIVE (Neg); URINE BENZODIAZEPINES SCREEN NEGATIVE (Neg); URINE CANNABINOID SCREEN NEGATIVE (Neg); URINE COCAINE SCREEN NEGATIVE (Neg); URINE METHADONE SCREEN NEGATIVE (Neg); URINE OPIATE SCREEN NEGATIVE (Neg); URINE PHENCYCLIDINE SCREEN NEGATIVE (Neg)
[2023-10-01 12:16] LABS: UA COLLECTION TYPE VOIDED
[2023-10-01 12:17] LABS: BACTERIA,URINE 4+ /HPF (Neg); MUCUS STRANDS FEW /LPF (Neg); RBC,URINE 0-2 /HPF (0-2); SQUAMOUS EPITHELIAL CELL,UR FEW /LPF (FEW)
[2023-10-01 12:36] LABS: THYROID STIMULATING HORMONE 0.4 ulU/ml (0.34-4.50); URIC ACID 6.9 MG/DL (2.5-6.2)
[2023-10-01] MEDS ORDERED: CEFU250T95 PO (12:58)
[2023-10-01 13:07] VITALS: BP 123/75; PULSE 71; RESP 15
== END 2023-10-01 13:25 | disposition home or self-care (01) ==
LOC: ER 09:49
DX: N39.0 Urinary tract infection, site not specified (principal); E87.8 Other disorders of electrolyte and fluid balance, not elsewhere classified; G40.909 Epilepsy, unspecified, not intractable, without status epilepticus; I63.9 Cerebral infarction, unspecified; I25.10 Atherosclerotic heart disease of native coronary artery without angina pectoris; I11.0 Hypertensive heart disease with heart failure; I50.9 Heart failure, unspecified; E78.00 Pure hypercholesterolemia, unspecified; K21.9 Gastro-esophageal reflux disease without esophagitis; F32.9 Major depressive disorder, single episode, unspecified; Z85.3 Personal history of malignant neoplasm of breast; Z88.8 Allergy status to other drugs, medicaments and biological substances
CPT/HCPCS: 36415; 70450; 71045; 80053; 80305; 81001; 82947; 82948; 83880; 84145; 84443; 84484; 84550; 85025; 93005; 96360; 96361; 99285; J7030

== ENCOUNTER 2024-12-11 10:58 | Emergency (ER) | payer MEDICARE, OTHER ==
[~2024-12-11] VITALS: Ht 165.1 cm; Wt 56.0 kg
[2024-12-11 11:28] VITALS: TEMP 98.2
--- NOTE | 2024-12-11 14:19 | Physician Documentation ---
History of Present Illness General Chief Complaint: Seizure Stated Complaint: SEIZURE Time Seen by MD: 13:58 Primary Medical Doctor: Javier BOWDEN Mode of Arrival: EMS History of Present Illness Initial Comments The patient is a 78-year-old female who began having seizures approximately a year ago when a neurologist started her on lacosamide. She has had a total of four seizures over the past here. She ran out of lacosamide three or four days ago and had her 4th seizure today. They are not tonic-clonic. She simply freezes up. Her reports that this lasted about 15 minutes and was followed by some drooling. He was not aware that she had her last dose of lacosamide four days ago. There is a prescription waiting for her and he went to get it. The patient does not recall her dose of lacosamide. Medication Reconciliation Allergies: Coded Allergies: prochlorperazine (Verified Allergy, Unknown, 07/28/22) Scheduled Atorvastatin Calcium (Lipitor), 1 TAB PO DAILY Carvedilol (Carvedilol), 6.25 MG PO BID, (Reported) Ergocalciferol (Vitamin D2) (Vitamin D2), 1 CAP PO Q7D, (Reported) Furosemide (Furosemide), 80 MG PO DAILY, (Reported) Lacosamide (Motpoly Xr), 1 TAB PO BID Levomefolate Calcium (l-Methylfolate Calcium), 1 TAB PO DAILY, (Reported) Losartan Potassium (Losartan Potassium), 100 MG PO DAILY, (Reported) Montelukast Sodium (Montelukast Sodium), 10 MG PO DAILY, (Reported) Omeprazole (Omeprazole), 20 MG PO DAILY, (Reported) Sertraline HCl (Sertraline HCl), 100 MG PO DAILY, (Reported) Spironolactone (Spironolactone), 25 MG PO DAILY, (Reported) Scheduled PRN Acetaminophen (Acetaminophen), 1 TAB PO Q6H PRN PRN for HEADACHE, (Reported) Past Medical History Past Medical History: Seizures, Coronary Artery Disease, Congestive Heart Fa ilure, High Cholesterol, Hypertension, GERD, Gout, Breast Cancer, Depression Past Surgical History: cancer surgery Other Past Surgical History: masectomy Alcohol Use: None Drug Use: none Lives with: Spouse Lives In: Home Review of Systems ROS Constitutional: Denies chills, fatigue, fever, weight gain or weight loss. HEENT: Denies hearing loss, sinus pressure or visual changes. Respiratory: Denies cough, shortness of breath or wheezing. Cardiovascular: Denies chest pain, pain while walking (claudication), edema or palpitations. Gastrointestinal: Denies abdominal pain, blood in stool, constipation, diarrhea, heartburn, loss of appetite, nausea or vomiting. Genitourinary: Denies painful urination (dysuria), excessive amount of urine (polyuria) or urinary frequency. Metabolic/Endocrine: Denies cold intolerance, heat intolerance, excessive thirst (polydipsia) or excessive hunger (polyphagia). Neurological: Seizure. Psychiatric: Denies anxiety or depression. Integumentary: Denies breast discharge, breast lump, hives, mole change(s), rash or skin lesion. Musculoskeletal: Denies back pain, joint pain, joint swelling or neck pain. Hematologic: Denies easily bleeding, easily bruises, lymphedema or issues with blood clots. Immunologic: Denies food allergies or seasonal allergies. Physical Exam Physical Exam Vital Signs: Temperature: 98.2, Source: Oral, Heart Rate: 69, Respiratory Rate: 18, BP: 149/79, Pulse Oximetry: 99, Weight: 56.000 Oxygen Flow Rate: 0 Physical Exam Physical Exam Vitals and nursing note reviewed. Constitutional: General: Patient is awake, alert, oriented x 4 in no acute distress and well appearing. Speech is clear and lucid. Appearance: Normal appearance. Patient is not ill-appearing, toxic-appearing or diaphoretic. HENT: Head: Normocephalic and atraumatic. Mouth/Throat: Mouth: Mucous membranes are moist. Pharynx: Oropharynx is clear. Eyes: General: No scleral icterus. Extraocular Movements: Extraocular movements intact. Pupils: Pupils are equal, round, and reactive to light. Neck: Supple, no Kernig or Brudzinski sign. Cardiovascular: Rate and Rhythm: Normal rate and regular rhythm. Heart sounds: No murmur heard. Pulmonary: Effort: No respiratory distress. Breath sounds: No wheezing, rhonchi or rales. Abdominal: General: There is no distension. Palpations: There is no fluid wave, hepatomegaly or mass. Tenderness: There is no abdominal tenderness. There is no guarding. Musculoskeletal: General: No swelling or deformity. Skin: Coloration: Skin is not jaundiced. Findings: No erythema or rash. Neurological examination: GCS: E-4, V-5, M-6 Motor strength: [motor strength] Sensory: [sensory] drawstring knotter: II - XII intact Equilibratory intact Progress Results/Orders Results/Orders Completed Orders - UDAY FRIEDMAN MD Lacosamide 50mg Tablet (Vimpat 50mg Tabl (12/11/24 15:35) Vital Signs 12/11/24 12/11/24 12/11/24 12/11/24 10:59 11:28 12:40 13:07 Temp 98.2 Pulse 78 69 69 Resp 16 19 19 B/P (MAP) 140/72 139/65 (89) 165/80 (108) Pulse Ox 98 97 96 O2 Flow Rate 2.0 0 12/11/24 13:28 Pulse 69 Resp 18 B/P (MAP) 149/79 (102) Pulse Ox 99 Medical Decision Making Findings This patient had a seizure four days after running out of her seizure medication, lacosamide. The patient's was not aware that she had run out of her medication. He is filling the prescription at this time and my plan is to give her her usual dose and discharge her. Patient is lacosamide doses 150 mg b.i.d.. I am giving her a dose here and sent a prescription to her pharmacy. I will have her follow-up with [facility] her neuro logist. Departure Disposition: HOME / SELF CARE / HOMELESS Impression: Primary Impression: Seizure disorder Condition: Stable Referrals: NO PRIMARY CARE PROVIDER (PCP) Prescriptions Lacosamide (Motpoly Xr) 150 Mg Cap.er.24h 1 TAB PO BID for 30 Days, #60 TAB Prov: UDAY FRIEDMAN MD 12/11/24 Education Educated: Patient Educated regarding: treatment Signature Scribe Signature: . Attestation: . UDAY FRIEDMAN MD Dec 11, 2024 14:19
[2024-12-11] MEDS ORDERED: [UNRECOGNIZED DRUG - CODE] PO (15:28)
[2024-12-11] MEDS: LACOSAMIDE 50 MG TABLET PO STA (16:13)
[2024-12-11 16:19] VITALS: BP 164/85; PULSE 77; RESP 15; O2SAT 95
== END 2024-12-11 16:24 | disposition home or self-care (01) ==
LOC: ER 10:59
DX: G40.909 Epilepsy, unspecified, not intractable, without status epilepticus (principal); E78.00 Pure hypercholesterolemia, unspecified; I11.0 Hypertensive heart disease with heart failure; I50.9 Heart failure, unspecified; F32.A Depression, unspecified; F41.9 Anxiety disorder, unspecified; I25.10 Atherosclerotic heart disease of native coronary artery without angina pectoris; Z88.8 Allergy status to other drugs, medicaments and biological substances
CPT/HCPCS: 99285

== ENCOUNTER 2025-05-08 13:13 | Inpatient (IN) | payer MEDICARE, OTHER ==
[~2025-05-08] VITALS: Ht 162.6 cm; Wt 59.0 kg
[~2025-05-08 13:13] MED LIST changes: -LEVO15TA6 PO; +[UNRECOGNIZED DRUG - CODE] PO; +[UNRECOGNIZED DRUG - CODE] PO
[2025-05-08 13:29] LABS: MEAN PLATELET VOLUME 7.9 FL (7.4-10.4); RED CELL DISTRIBUTION WIDTH 14.8 % (11.5-14.5)
--- NOTE | 2025-05-08 13:40 | Physician Documentation ---
History of Present Illness General Chief Complaint: Seizure Stated Complaint: SZ Time Seen by MD: 13:17 Primary Medical Doctor: Javier BOWDEN History of Present Illness Initial Comments 79-year-old female who reportedly had four seizures prior to arrival in the emergency room. EMS states that they witnessed about a minute with a seizure activity with the patient continuing to be postictal after the seizure. The patient was seizing on arrival to the emergency department. The patient r eportedly is not taking her seizure medications. The patient is on Vimpat as well as valproic acid. The history was provided by EMS. The patient had lost continence as well. The patient was not given anything for seizures pre- hospital Medication Reconciliation Allergies: Coded Allergies: prochlorperazine (Verified Allergy, Unknown, 07/28/22) Scheduled Carvedilol (Carvedilol), 6.25 MG PO BID, (Reported) Clobazam (Clobazam), 10 MG PO HS, (Reported) Divalproex Sodium (Depakote ER), 500 TAB PO DAILY, (Reported) Ergocalciferol (Vitamin D2) (Vitamin D2), 1 CAP PO Q7D, (Reported) Escitalopram Oxalate (Lexapro), 1 TAB PO DAILY, (Reported) Furosemide (Furosemide), 40 MG PO DAILY, (Reported) Lacosamide (Vimpat), 1 TAB PO BID, (Reported) Levomefolate Calcium (l-Methylfolate Calcium), 1 TAB PO DAILY, (Reported) Losartan Potassium (Losartan Potassium), 100 MG PO DAILY, (Reported) Spironolactone (Spironolactone), 20 MG PO DAILY, (Reported) Discontinued Medications Acetaminophen (Acetaminophen), 1 TAB PO Q6H PRN PRN for HEADACHE, (Reported) Discontinued Reason: patient no longer taking Atorvastatin Calcium (Lipitor), 1 TAB PO DAILY Lacosamide (Motpoly Xr), 1 TAB PO BID Discontinued Reason: patient no longer taking Losartan Potassium* (Cozaar*), 100 MG PO DAILY, (Reported) Montelukast Sodium (Montelukast Sodium), 10 MG PO DAILY, (Reported) Discontinued Reason: patient no longer taking Omeprazole (Omeprazole), 20 MG PO DAILY, (Reported) Discontinued Reason: patient no longer taking Sertraline HCl (Sertraline HCl), 100 MG PO DAILY, (Reported) Discontinued Reason: patient no longer taking Past Medical History Past Medical History: Seizures, Coronary Artery Disease, Congestive Heart Failure, High Cholesterol, Hypertension, GERD, Gout, Breast Cancer, Depression Past Surgical History: cancer surgery Other Past Surgical History: masectomy Alcohol Use: None Drug Use: none Lives with: Spouse Lives In: Home Review of Systems Unable to obtain complete ROS: altered mental status Physical Exam Physical Exam Vital Signs: Temperature: 98.4, Source: Temporal, Heart Rate: 66, Respiratory Rate: 12, BP: 154/75, Pulse Oximetry: 96, Weight: 59.000 Oxygen Flow Rate: 0 Physical Exam VITALS: Reviewed and as above. GENERAL: The patient was seizing eyes were fixed to the right and looking down HEENT: Normocephalic, atraumatic, PERRL, EOMI, dry mucosa, no erythema RESPIRATORY: Lungs clear, normal breath sounds, no respiratory distress. CHEST: No accessory muscle use, no retractions CV: Regular rate, rhythm, no edema, no murmur, No: JVD GI: Soft, non-tender, bowels sounds present, no rebound, guarding, or rigidity BACK: No CVA tenderness, or swelling MUSCULOSKELETAL: No deformities, no edema SKIN: Warm and dry, no rash NEURO: Patient was seizing with movement of the left arm bilateral movements of the face otherwise verbally nonresponsive Progress Results/Orders Results/Orders Orders - OHLKANIKA ANTHONY MD Monitor (05/08/25 13:17) Saline Lock (05/08/25 13:17) Electrocardiogram (05/08/25 13:38) Chest,Single View (05/08/25 14:04) Page Hospitalist (05/08/25 16:31) Completed Orders - OHKANIKA JOHNSTON MD Cbc/Diff (05/08/25 13:17) Normal Saline 1000ml (0.9% Sodium Chlori (05/08/25 13:20) BMP (05/08/25 13:17) Nothing By Mouth (05/08/25 Dinner) Lorazepam Inj (Ativan Inj) (05/08/25 13:20) Lorazepam Inj (Ativan Inj) (05/08/25 13:20) Valproate Sod Inj (Depacon Inj) (05/08/25 13:20) Electrocardiogram (05/08/25 13:38) Procalcitonin (05/08/25 14:04) Chest,Single View (05/08/25 14:04) Ua W/Microscopic, Cult If Ind (05/08/25 14:12) Cult Urine + Organ Ct (05/08/25 14:45) Ceftriaxone/K8d-Bmjapkrp 1gm (Rocephin 1 (05/08/25 15:00) C-Reactive Protein (05/08/25 13:22) Lipid Panel (05/08/25 13:22) Hgb A1c (05/08/25 13:22) TSH (05/08/25 13:22) Valproate (05/08/25 13:22) Vital Signs 05/08/25 05/08/25 05/08/25 05/08/25 13:15 13:15 13:15 13:23 Temp 98.4 Pulse 66 Resp 17 12 12 B/P (MAP) 154/75 Pulse Ox 96 94 O2 Delivery Nasal Cannula* O2 Flow Rate 0 2 FiO2 28 05/08/25 05/08/25 05/08/25 05/08/25 13:23 13:31 13:45 14:00 Pulse 89 68 69 Resp 12 25 21 18 B/P (MAP) 163/67 (99) 155/74 (101) 160/79 (106) Pulse Ox 95 97 99 O2 Flow Rate 2.0 2.0 2.0 05/08/25 05/08/25 05/08/25 05/08/25 14:15 14:31 14:45 15:00 Pulse 70 67 69 68 Resp 16 13 15 12 B/P (MAP) 164/82 (109) 156/74 (101) 166/77 (106) 142/76 (98) Pulse Ox 100 99 94 94 O2 Flow Rate 2.0 2.0 0 0 Laboratory Tests Test 05/08/25 13:22 05/08/25 14:12 05/08/25 14:14 White Blood Count 6.5 Red Blood Count 3.91 L Hemoglobin 12.9 Hematocrit 38.2 Mean Corpuscular Volume 97.8 Mean Corpuscular Hemoglobin 33.1 H Mean Corpuscular Hemoglobin Concent 33.9 Red Cell Distribution Width 14.8 H Platelet Count 184 Mean Platelet Volume 7.9 Neutrophils (%) (Auto) 74.2 Lymphocytes (%) (Auto) 20.8 L Monocytes (%) (Auto) 4.3 Eosinophils (%) (Auto) 0.4 Basophils (%) (Auto) 0.3 Neutrophils # (Auto) 4.8 Lymphocytes # (Auto) 1.4 Monocytes # (Auto) 0.3 Eosinophils # (Auto) 0.0 Basophils # (Auto) 0.0 CBC Comment Sodium Level 140 Potassium Level 4.3 Chloride Level 101 Carbon Dioxide Level 32.3 H Anion Gap 7 L Blood Urea Nitrogen 21 H Creatinine 1.19 H Estimated GFR/1.73 m2 44 BUN/Creatinine Ratio 17.6 Glucose Level 150 H Hemoglobin A1c 6.1 Calcium Level 9.6 C-Reactive Protein 0.19 Albumin 3.6 Triglycerides Level 84 Cholesterol Level 221 H LDL Cholesterol 138 H HDL Cholesterol 72 H Cholesterol/HDL Ratio 3.1 Thyroid Stimulating Hormone (TSH) 2.00 Chemistry Comments Valproic Acid (Depakene) Level 24 L Urine Specimen Description Other Urine Color Yellow Urine Clarity Clear Urine pH 7.0 Urine Specific [place] 1.010 Urine Protein Negative Urine Glucose (UA) Negative Urine Ketones Negative Urine Occult Blood Negative Urine Nitrite Negative Urine Bilirubin Negative Urine Urobilinogen 0.2 Urine Leukocyte Esterase Small H Urine RBC 0-2 Urine WBC 0-4 Urine Squamous Epithelial Cells Few Urine Bacteria 3+ Urine Culture Indicated Indicated Volume Urine Centrifuged 10 ml Urine Comment Urine Opiates Screen Negative Urine Methadone Screen Negative Urine Fentanyl Screen Negative Urine Barbiturates Screen Negative Urine Phencyclidine Screen Negative Urine Amphetamines Screen Negative Urine Benzodiazepines Screen Positive Urine Cocaine Screen Negative Urine Cannabinoids Screen Negative Drug Screen Comment Procalcitonin < 0.05 Microbiology Date/Time Source Procedure Growth Status 05/08/25 14:45 Urine Other Urine Culture - Final Escherichia Coli Complete Medical Decision Making Additional information obtaine: old records Findings 79-year-old female with a recurrent seizures today likely secondary to not taking her seizure medication occasions since Wednesday, the patient was given Ativan here in the emergency department and is very somnolent and slightly difficult to arouse given this fact and the multiple seizures the patient will be admitted to the hospitalist the patient also has a urinary tract infection she has been treated with ceftriaxone here in the emergency department her pulse oximetry was interpreted as normal and adequate and her equipment monitor phototypesetting was interpreted as a sinus rhythm. Differential Diagnosis siezure, sepsis, cva Departure Admitted to Inpatient Unit: yes, to hospitalist Impression: Primary Impression: Seizure disorder Additional Impression: UTI (urinary tract infection) Qualified Codes: N39.0 - Urinary tract infection, site not specified Referrals: NO PRIMARY CARE PROVIDER (PCP) Critical Care Note Total Time (mins): 35 Critical Care Note The very real possibility of a deterioration of this patient's condition required the highest level of my preparedness for sudden, emergent intervention. I provided critical care services, which included medication orders, frequent reevaluations of the patient's condition and response to treatment, ordering and reviewing test results, and discussing the case with various consultants. Excludes time spent performing separately billable procedures. The critical care time associated with the care of the patient was 35 minutes. Signature Scribe Signature: no scribe Attestation: The note accurately reflects work and decisions made by me.Kanika Jha MD 05/11/25 11:21 KANIKA JHA MD May 08, 2025 13:40
[2025-05-08 13:55] LABS: CREATININE 1.19 MG/DL (0.40-0.90); TOTAL CARBON DIOXIDE 32.3 MMOL/L (24-32); eCRCL 34 ML/MIN; eGFR 44 ML/MIN
[2025-05-08] MEDS: valproate sod inj 1,000 MG in normal saline 50ml IV soln 50 ML IV ONE (13:55)
--- NOTE | 2025-05-08 13:55 | ELECTROCARDIOGRAPH REPORT ---
[facility] Test Date: 2025-05-08 Test Time: 13:38:21 Pat Name: SOPHIA CHUN Department: EMERGENCY ROOM Room: ORTHO 4009 Gender: F Underwriting Assistant: LEATHA : [id number] Requested By: KANIKA LOZANO Order Number: [id number] Reading MD: Dr. YANI Herrera Measurements Intervals [place] Rate: 67 P: 44 AL: 217 QRS: 31 QRSD: 179 T: -25 QT: 476 QTc: 503 Interpretive Statements Sinus rhythm Borderline prolonged AL interval Probable left atrial enlargement Left bundle branch block Electronically Signed On 05-10-2025 16:55:[address] YANI Herrera Please click the below link to view image of tracing.
[2025-05-08] MEDS: normal saline 1000ML IV soln IVB ONE (13:57)
[2025-05-08 14:25] LABS: LEUKOCYTE ESTERASE ,URINE SMALL (Neg); NITRITES, URINE NEGATIVE (Neg); OCCULT BLOOD,URINE NEGATIVE (Neg)
--- NOTE | 2025-05-08 14:33 | RADIOLOGY REPORT ---
CHEST RADIOGRAPH Indication: cough seizure Technique: Single frontal view of the chest was obtained Comparison: DI CHEST,SINGLE VIEW on DOS: 10/01/23, CHEST,SINGLE VIEW on DOS: 07/28/22, CHEST,SINGLE VIEW on DOS: 03/17/19 FINDINGS: Lines and Tubes: None Lungs: No focal consolidation. Pleura: No effusion. No pneumothorax. Cardiomediastinal contours: Unremarkable Bones: No acute osseous abnormality. IMPRESSION: No acute cardiopulmonary disease.
[2025-05-08 14:42] LABS: UA COLLECTION TYPE OTHER
[2025-05-08 14:44] LABS: SQUAMOUS EPITHELIAL CELL,UR FEW /LPF (FEW)
[2025-05-08] MEDS: CefTRIAXone/D5W-Rocephin 1gm 50 ML IV ONE (15:56)
[2025-05-08] MEDS ORDERED: potassium Cl 40MEQ/1/2NS 520ml 520 ML IV PRN (17:20)
[2025-05-08] MEDS ORDERED: HYDROcodone/acetaminophen 5mg/325mg tablet PO PRN (17:20)
[2025-05-08] MEDS ORDERED: magnesium sulf-water 2g/50mL 50 ML IV PRN (17:20)
[2025-05-08] MEDS ORDERED: potassium Cl 20 mEq SR tablet PO PRN ×2 (17:20)
[2025-05-08] MEDS ORDERED: ondansetron/PF 4mg/2ml inj IV PRN (17:20)
[2025-05-08] MEDS ORDERED: magnesium sulf-water 4G/100mL 100 ML IV PRN (17:20)
[2025-05-08] MEDS ORDERED: magnesium Cl slow-release 64mg tablet PO PRN (17:20)
[2025-05-08] MEDS ORDERED: magnesium hydroxide 30ml (MOM) UD suspension PO PRN (17:20)
[2025-05-08] MEDS ORDERED: mag hydrox/Alum hydrox/simeth 30ml oral suspension PO PRN (17:20)
--- NOTE | 2025-05-08 17:46 | HISTORY AND PHYSICAL-Residence ---
History & Physical Providers to CC Resident Creating Document: EVELIN PÉREZ RES ~ History of Present Illness Primary Medical Doctor: Javier Chun, Dr Alford Reason for Admit\Complaint: Recurrent seizures History of Present Illness This is a 79-year-old female patient with a past medical history of atonic seizures since the last seven years of unknown etiology who presented to the hospital from home via ambulance with recurrent tonic-clonic seizures. She had four episodes of seizures altogether today, two episodes at home, one in the EMS and another one in the ER. The EMS episode lasted for 1.5 minutes. There was regaining of consciousness but postictal confusion in between the episodes. Most of the history has been obtained from the and the daughter as the patient was still in the postictal phase during our H&P. The patient follows up with Dr. Alford for her seizures and has been on a regimen of valproate 500 mg ER, lacosamide 200 mg and recently started on clobazam 10 mg daily since March 2025 after last episode of breakthrough seizures requiring hospitalization. The daughter reports that despite the above medications she still continues to have occasional breakthrough seizures unusually takes at least 2 hours to recover post seizure. However, since Wednesday the patient has been on no medications except clobazam which also she stopped on Wednesday night as this switch the pharmacies and delivery with the medications has been delayed. In addition, the patient has also been receiving antibiotic therapy for a tooth infection initially followed by UTI and she complete all antibiotic therapy a day before . The daughter also reports significant amount of diarrhea on Wednesday. Denies any fevers or chills or any new onset change in behavior. Denies in any other change in medications. Denies any head trauma. Denies history of stroke, meningitis or encephalitis. reports with the patient has had increasing balance issues and has had recurrent falls with the last one was a couple of days ago in this month where she hit her buttock but has had no head trauma. Allergies: Coded Allergies: prochlorperazine (Verified Allergy, Unknown, 07/28/22) Home Medications Home Medications Active Motpoly Xr (Lacosamide) 150 Mg Cap.er.24h 1 Tab PO BID 30 Days Lipitor (Atorvastatin Calcium) 20 Mg Tablet 1 Tab PO DAILY 30 Days Reported Acetaminophen 500 Mg Tablet 1 Tab PO Q6H PRN PRN 15 Days l-Methylfolate Calcium (Levomefolate Calcium) 15 Mg Tablet 1 Tab PO DAILY Vitamin D2 (Ergocalciferol (Vitamin D2)) 1,250 Mcg Capsule 1 Cap PO Q7D ON THURSDAYS Sertraline HCl 100 Mg Tablet 100 Mg PO DAILY Losartan Potassium 100 Mg Tablet 100 Mg PO DAILY Spironolactone 25 Mg Tablet 25 Mg PO DAILY Furosemide 40 Mg Tablet 80 Mg PO DAILY Montelukast Sodium 10 Mg Tablet 10 Mg PO DAILY Omeprazole 20 Mg Capsule.dr 20 Mg PO DAILY Carvedilol 6.25 Mg Tablet 6.25 Mg PO BID Past Medical History Past Medical History Heart failure with unknown ejection fraction, hyperlipidemia, seizures Past Surgical History Surgical History Comment Left breast mastectomy status post chemotherapy 25 years ago Family History Family History: Aortic valve disorder FATHER FH: congestive heart failure [place] grandfather FH: diabetes mellitus MOTHER FH: hypertension Brother Past Social History Social History Comment Nonsmoker. Quit drinking alcohol 4-5 months ago, never an alcoholic. Denies any other illicit drug abuse Lives at home with her , travel ot is her [id number] who is a retired nurse. Ambulates independently but has been having trouble with increased imbalance lately; last fall a couple of days ago but no head trauma Alcohol Use: None Drug Use: None Lives with: Spouse Lives In: Home ROS ROS Unable to be obtained Unable to obtain: altered mental status Exam Vitals: Vital Signs Date Time Temp Pulse Resp B/P (MAP) Pulse Ox O2 Delivery O2 Flow Rate FiO2 05/08/25 15:00 68 12 142/76 (98) 94 0 05/08/25 13:15 Nasal Cannula* 28 05/08/25 13:15 98.4 General: General: Stuporous HEENT: Conjunctiva pink, Sclera clear, Mucus Membranes moist. Pupils equal and reactive to light Resp: Unlabored. Lungs clear to auscultation bilaterally. Heart: Regular Rate and rhythm, normal S1 and S2 without murmur, rub or gallop. Left mastectomy Abdomen: Soft and non tender no organomegaly Extremities: No cyanosis,clubbing or edema. Skin: Warm and Dry. No rashes Diagnostic Data Last Recorded Lab Results: 05/08/25 1322 05/08/25 1322 Advance Care Planning Advanced Care planning: N/A Additional Plan Breakthrough tonic-clonic seizures: History of atonic seizures Secondary to medication nonadherence Posterior ictal state secondary to above Mild hypercarbia secondary to above Received one dose of valproic acid 1 g and 2 mg Ativan in the ER Currently on home medications of lacosamide, clobazam and valproate. We will restart lacosamide and valproic acid Ativan for breakthrough seizures. Maintain therapeutic level between 50-100 mcg/mL Unlikely to be UTI induced, received one dose Rocephin in the ER and also recently completed antibiotics for UTI. UA negative for persistent UTI Follow CT head due to new onset tonic-clonic seizures NPO until bedside swallow eval, BSS, aspiration precautions. Seizure precautions Prolonged ID interval: Heart rate in the 68 Continue telemetry monitoring Mild acute kidney injury: Prerenal in etiology Baseline 0.8 IVF at a rate of 75 cc/hour Monitor BMP Chronic Heart failure with unknown ejection fraction: In no acute exacerbation CXR clear with no increased pulmonary vascular congestion Continue home medications after reconciliation Continue monitoring on IV fluids History of left breast cancer status post mastectomy: Chemotherapy 25 years ago Compliant with mammograms every year Hyperglycemia: Hyperlipidemia No history of diabetes, hyperglycemia secondary to hypermetabolism Follow lipid panel and A1c Continue home medication of atorvastatin 20 mg Lines: PIV Code status: DNR, discussed with the in the daughter regarding the patient's POLST form which states DNR and asked him to bring it in from home or we will requested from Dr. Allen's office Diet: NPO, aspiration precautions DVT prophylaxis: Heparin SQ Deepanjali Vedantam PGY3, Internal medicine resident Patient was seen, examined and discussed with the attending MD, Dr. Boyer Date of Service: May 08, 2025 Billing Provider: SARAN BOYER MD Common Visit Codes: [id number] INP/OBS CARE (HIGH) Secondary Visit Codes: [id number] CARE PLAN 30 MINUTES VEEVELIN WILBURN, RES May 08, 2025 17:46 SARAN BOYER MD May 10, 2025 06:41
[2025-05-08 18:10] LABS: CHOL/HDL RATIO 3.1 (0.00-4.99); LDL CHOLESTEROL 138 MG/DL (50-100)
--- NOTE | 2025-05-08 18:46 | RADIOLOGY REPORT ---
EXAM: CT CT HEAD INDICATION: Breakthrough seizures TECHNIQUE: CT of the head without intravenous contrast. Radiation Dose : 1. Head: CT Dose: CTDI volume is 57.7 mGy. Dose-length product is 1029.09 mGy*cm The dose indicators for CT are the volume Computed Tomography (CT) Dose Index (CTDIvol) and the Dose Length Product (DLP), and are measured in units of mGy and mGy-cm, respectively. These indicators are not patient dose, but values generated from the CT scanner acquisition factors. The report includes radiation exposure data for exposures received during this examination. COMPARISON: CT CT HEAD on DOS: 10/01/23, MRI HEAD on DOS: 03/17/19, CT STROKE ALERT on DOS: 03/17/19 FINDINGS: There is no evidence of acute intracranial hemorrhage, extra-axial collection, mass effect, midline shift, herniation or hydrocephalus. The ventricles, sulci and cisterns are age appropriate. The zamarripa-white differentiation is intact. Patchy periventricular and subcortical white matter hypoattenuation is nonspecific but may be related to small vessel ischemic disease. Generalized brain atrophy. The visualized paranasal sinuses and mastoid air cells are clear. The surrounding soft tissues and osseous structures are unremarkable. IMPRESSION: No acute intracranial abnormality. Atrophy and chronic small-vessel ischemic changes. Radiation optimization: All CT scans at this facility use at least one of these dose optimization techniques: automated exposure control mA and/or kV adjustment per patient size (includes targeted exams where dose is matched to clinical indication) or iterative reconstruction.
[2025-05-08 18:58] LABS: VALPROATE 24 UG/ML (50-100)
[2025-05-08 19:13] LABS: URINE AMPHETAMINE SCREEN NEGATIVE (Neg); URINE BARBITUATE SCREEN NEGATIVE (Neg); URINE BENZODIAZEPINES SCREEN POSITIVE (Neg); URINE CANNABINOID SCREEN NEGATIVE (Neg); URINE COCAINE SCREEN NEGATIVE (Neg); URINE METHADONE SCREEN NEGATIVE (Neg); URINE OPIATE SCREEN NEGATIVE (Neg); URINE PHENCYCLIDINE SCREEN NEGATIVE (Neg)
[2025-05-08] MEDS: LACOSAMIDE 200mg/20ml inj. 200 MG in normal saline 100ml IV soln 100 ML IV SCH (19:49)
[2025-05-08] MEDS: K and/or MAG REPLACEMENT MC SCH (20:00)
[2025-05-08] MEDS: docusate sod 100mg capsule PO SCH (20:00)
[2025-05-08] MEDS: normal saline 1000ml 1,000 ML IV SCH (20:11)
[2025-05-08] MEDS ORDERED: CLOB20TA PO (20:52)
[2025-05-08] MEDS ORDERED: LACO200T2 PO (20:52)
[2025-05-08] MEDS ORDERED: DIVA250T2 PO (20:52)
[2025-05-08] MEDS ORDERED: ESCI20TA PO (20:52)
[2025-05-08] MEDS ORDERED: LOSA-415 PO (20:52)
[2025-05-08 21:30] VITALS: RESP 13; O2SAT 96
[2025-05-08] MEDS: valproate sod inj 500 MG in normal saline 50ml IV soln 50 ML IV SCH (21:35)
[2025-05-08] MEDS: heparin, porcine 5000 units/ml vial SQ SCH (21:36)
[2025-05-08 22:00] VITALS: BP 138/54; PULSE 70; RESP 13; TEMP 97; O2SAT 96
[2025-05-08] MEDS ORDERED: diazepam inj 5 MG/ML inj. IV PRN (22:10)
--- NOTE | 2025-05-08 23:02 | [facility] CONSULT REPORT ---
[facility] Procedure Note [facility] Procedure Note Consult [facility] Note # Demographics Consult Type: General Neurology Patient Location: Inpatient First Name: Marisol Last Name: Anthony Date of : 1945 Age: 79 Gender: Female Facility: [facility] Time of Initial Page (): 05/08/2025 17:36 First Contact with Site ( Time): 05/08/2025 17:36 Phone Agreement: - phone consult deemed mutually sufficient for patient care # HPI History: 79 y/o F with Hx of seizures on unclear dosages of onfi, depakote and vimpat presents with multiple breakthrough seizures after running out of medications. She has received Depacon 1gm IV and Ativan 2mg IV. # Data Head CT: negative for acute changes # Assessment Impression: - Seizure # Plan Labs: - CBC - comprehensive metabolic panel - ua valproic acid level Diagnostic Test: - EEG Medication: vimpat 200mg IV BID Depacon 500mg IV BID Other: - If patient has any neurological deterioration please call me back immediately - I have discussed my recommendations with the referring provider # Logistics Attestation of consult completion: The patient is located at: [facility]. I performed this phone consultation from my offsite office Total time spent in telemedicine encounter: I spent 15 minutes in reviewing clinical data and/or imaging, obtaining history, communicating with the onsite care team, and in preparation of this report. # Demographics First Name: Marisol Last Name: Anthony Facility: [facility] Electronically signed at 05/08/2025 23:01 () by Hallie Whiteside DO Neuro Consult Order placed for: Yes ALLISON WHITESIDE DO May 08, 2025 23:02
[2025-05-09 02:00] VITALS: PULSE 59; RESP 22; TEMP 97.8; O2SAT 100
[2025-05-09 06:00] VITALS: BP 129/60; PULSE 52; RESP 18; TEMP 97.6; O2SAT 99
[2025-05-09 06:43] LABS: CREATININE 0.89 MG/DL (0.40-0.90); TOTAL CARBON DIOXIDE 28.8 MMOL/L (24-32); eCRCL 46 ML/MIN; eGFR 62 ML/MIN
[2025-05-09 07:05] LABS: MEAN PLATELET VOLUME 7.9 FL (7.4-10.4); RED CELL DISTRIBUTION WIDTH 14.5 % (11.5-14.5)
[2025-05-09] MEDS: ESCITALOPRAM 10 mg tablet 10 MG TABLET PO SCH (08:00)
[2025-05-09] MEDS: carvedilol 6.25mg tablet PO SCH (08:00)
[2025-05-09 08:11] LABS: PRO BRAIN NATRIURETIC PEPTIDE 2871 PG/ML (0-450)
[2025-05-09 10:36] VITALS: BP 132/62; PULSE 60; RESP 19; TEMP 97.8; O2SAT 94
--- NOTE | 2025-05-09 10:55 | [facility] CONSULT REPORT ---
[facility] Procedure Note [facility] Procedure Note Consult [facility] Note # Demographics Consult Type: Follow-Up Phone Call Patient Location: Inpatient First Name: Marisol Last Name: Anthony Date of : 1945 Age: 79 Gender: Female Facility: [facility] Time of Initial Page (): 05/09/2025 10:48 First Contact with Site ( Time): 05/09/2025 10:48 Phone Only Consult: 79-year-old female with a history of seizures who presents with multiple seizure episodes. She experienced approximately 4 seizures yesterday, with recovery of consciousness between episodes. Her last seizure occurred in the hospital around 2 PM yesterday. The patient had been unable to take her seizure medications since Wednesday, which precipitated the breakthrough seizures. She is prescribed valproic acid and had not been able to take any of her medications during this period. Following her last seizure episode, she has remained in a confused state and has only minimally responsive, barely opening her eyes and requiring sternal rub for arousal when admitted last night. She has not returned to her baseline mental status. Currently, she is being treated with IV valproic acid 500 mg twice daily, lacosamide 200 mg twice daily, and Ativan for breakthrough seizures as needed. CT scan showed no acute findings noted. Team is calling for further recommendations: - Recommend getting EEG as previously recommended by Dr. Whiteside. If no improvement in mental status, can consider MRI Joe wo amanda. No changes to her AED at this time. Phone Agreement: - phone consult deemed mutually sufficient for patient care # Assessment Impression: - Seizure # Plan Other: - If patient has any neurological deterioration please call me back immediately # Logistics Attestation of consult completion: The patient is located at: [facility]. I performed this phone consultation from my offsite office Total time spent in telemedicine encounter: I spent 10 minutes in reviewing clinical data and/or imaging, obtaining history, communicating with the onsite care team, and in preparation of this report. # Demographics First Name: Marisol Last Name: Anthony Facility: [facility] Neuro Consult Order placed for: Yes VAL MA MD May 09, 2025 10:55
[2025-05-09 12:10] VITALS: BP 155/62; PULSE 59; RESP 18; TEMP 97.7; O2SAT 98
--- NOTE | 2025-05-09 15:01 | PROCEDURE NOTE ---
Procedure Note Providers to CC ~ Interpretation: [facility] EEG Note # Demographics Type of EEG Read: - Routine EEG - video Patient Location: Inpatient First Name: Marisol Last Name: Anthony Date of : 1945 Age: 79 Gender: Female Facility: [facility] Time of Initial Page (): 05/09/2025 10:16 First Contact with Site (): 05/09/2025 10:19 # EEG Interpretation Start Time of EEG Read (): 05/09/2025 10:45 Stop Time of EEG Read (): 05/09/2025 11:06 Duration: 0h 21m Technical Details: - The EEG electrodes were placed using the standard International 10-20 system of electrode placement. Video and an accessory EKG lead were used during the course of this study. - This study was recorded using the Connect2me EEG software Indication: - altered mental status # Description Photic Stimulation: NOT Performed Hyperventilation: NOT performed Phases Captured: - drowsy - sleep Symmetry: symmetric Posterior Dominant Rhythm: absent Predominant Frequencies: - theta (4-7 Hz) - abundant (50-89%) Superimposed Frequencies: - beta (>15 Hz) - abundant (50-89%) Amplitude: normal Reactivity: yes Variability: yes Continuity: continuous EKG: NSR # Abnormalities Epileptiform Abnormalities: - NOT present Focal Slowing: no Seizure: - NOT present # Impression Impression: abnormal 1. Mild generalized background slowing, however, predominantly seen in the sleep state limiting awake evaluation. No epileptiform findings or lateralizing signs seen. 2. Excess Beta # Clinical Correlation 1. Diffuse slowing is non-specific and may be seen in the setting of diffuse cerebral dysfunction; such as toxic/metabolic/infectious encephalopathy or heavily sedating medication use. 2. Excess beta is a non-specific finding but may be seen in the setting of Benzodiazepine or Barbiturate use # Demographics First Name: Marisol Last Name: Anthony Facility: [facility] FLORENCIO DIA MD May 09, 2025 15:00
--- NOTE | 2025-05-09 16:30 | PROGRESS NOTE- Residence ---
Progress Note - Resident Providers to CC Resident Creating Document: RENETTA MEJIA, JV ~ Central Line/PICC still needed: No [place]-Non Protocol [place] Indications Met/Not Met: F/C Indications Not Met Antibiotic Timeout Antibiotic Ordered?: No Subjective Patient continues to be lethargic but mental status improving where she sometimes more responsive than the other times. EEG negative for acute seizures. Discussed with Dr. Alford today, recommends continuing the same medication of lacosamide and Depakote at this time IV and adding Ativan 1 mg b.i.d. scheduled if she has another seizure. The patient is apparently tapered off of Depakote recently and is only on lacosamide and clobazam at home but due to her home medications indicating Depakote, we started the medication again. No further episodes of seizures. Remains hemodynamically stable. Objective Vital Signs Date Time Temp Pulse Resp B/P (MAP) Pulse Ox O2 Delivery O2 Flow Rate FiO2 05/09/25 12:10 97.7 59 18 155/62 (93) 98 Nasal Cannula 2.0 05/08/25 13:15 28 Result Diagram: 05/09/25 0641 05/09/25 0609 General: Stuporous but improving mentation, waxing and waning of responsiveness HEENT: Conjunctiva pink, Sclera clear, Mucus Membranes moist. Bilateral pupils equal and reactive to light Resp: Unlabored. Lungs clear to auscultation bilaterally. Heart: Regular Rate and rhythm, normal S1 and S2 without murmur, rub or gallop. Left mastectomy Abdomen: Soft and non tender no organomegaly Extremities: No cyanosis,clubbing or edema. TORPED[employer]OTER: No abnormal movements, no automatisms. Bilateral pupils equal and reactive to light, no cranial nerve deficits. No apparent motor deficits. Unable to evaluate for sensory deficits or gait. Skin: Warm and Dry. No rashes Assessment Assessment This is a 79-year-old female patient with a past medical history of seizure diagnosed seven years ago who presented to the [facility] for breakthrough seizures. Plan Plan Breakthrough tonic-clonic seizures: History of atonic seizures Secondary to medication nonadherence Post-ictal state secondary to above; hypercarbia resolved. Continue home medications via IV route; continue lacosamide and valproic acid If recurrence of seizures, add Ativan 1 mg b.i.d. scheduled. Prn Ativan for breakthrough seizures in place EEG consistent with postictal state with diffuse slowing and no active seizure activity CT head negative for acute intracranial abnormalities. If patient fails to recover in terms of consciousness, we will order an MRI NPO until bedside swallow eval, BSS, aspiration precautions. D5 LR as she is currently not eating Seizure precautions in place Prolonged MO interval: First degree AV block Heart rate between 50s to 60s Unable to evaluate for symptoms at this time Decrease Coreg from 6.25 to 3.125 mg b.i.d. Classification Case Manager is Dr Herrera Continue telemetry monitoring Mild acute kidney injury: Resolved Prerenal in etiology Continue IVF at a rate of 75 cc/hour Closely monitor for increasing oxygen demand Monitor BMP Chronic Heart failure with improved ejection fraction: In no acute exacerbation EF improved from 45% to 55% today on 05/31 from 07/30 CXR clear with no increased pulmonary vascular congestion Continue home medications of losartan, Aldactone, Coreg and Lasix Not on Jardiance or Farxiga, possible etiology due to increased risk of seizures with the same medications. Follow with Cardiology outpatient Continue monitoring on IV fluids for increasing oxygen demand History of left breast cancer status post mastectomy: Chemotherapy 25 years ago Compliant with mammograms every year Hyperglycemia: Resolved Hyperlipidemia No history of diabetes, hyperglycemia secondary to hypermetabolism; resolved. A1c 6.1 LDL elevated 138, total cholesterol 221 Increased atorvastatin dose from 20 mg to 40 mg Lines: PIV Code status: DNR, discussed with the in the daughter regarding the patient's POLST form which states DNR and asked him to bring it in from home or we will requested from Dr. Allen's office Diet: NPO, aspiration precautions DVT prophylaxis: Heparin SQ Renetta Mejia PGY3, Internal medicine resident Patient was seen, examined and discussed with the attending MD, Dr. Boyer Date of Service: May 09, 2025 Billing Provider: SARAN BOYER MD Common Visit Codes: [id number] INP/OBS CARE(HIGH) RENETTA MEJIA, RES May 09, 2025 16:30 SARAN BOYER MD May 10, 2025 06:42
[2025-05-09 18:00] VITALS: BP 163/66; PULSE 58; RESP 17; TEMP 97.3; O2SAT 98
--- NOTE | 2025-05-09 18:04 | CARDIOLOGY REPORT ---
APPROVED REPORT EXAM: Comprehensive 2D, Doppler, and color-flow Echocardiogram. Patient Location: 302 Blood Pressure: 154/75 mmHg Heart Rate: 55 bpm Rhythm: Bradycardia Indications Shortness of Breath Coronary Artery Disease Congestive Heart Failure Hypertension [facility] SCRIPT READER: BV. Javier MD Previous ECHO: 07/29/22, [facility], EF: 45 2D Dimensions LA Diam 3.3 cm IVSd 0.8 (0.7-1.1cm) LVDd 5.1 cm PWd 1.0 (0.7-1.1cm) IVSs 1.1 (0.8-1.2cm) LVDs 3.8 (2.5-4.0cm) PWs 1.3 (0.8-1.2cm) LVOT Diameter 2.07 (1.8-2.4cm) LVEF(%) 49.1 (>50%) Ao Asc Diam. 2.85 cm IVC 14.00 mm FS (%) 25.0 % SV 61.3 ml CO 3.5 L/min M-Mode Dimensions Left Atrium(MM) 3.27 (2.5-4.0cm) Aortic Root 3.00 (2.2-3.7cm) Aortic Cusp Exc 0.97 (1.5-2.0cm) MV EPSS 0.6 (<0.5cm) Aortic Valve AoV Peak Driss. 164.2 cm/s AoV VTI 32.8 cm AO Peak GR. 10.8 mmHg AO Mean GR. 6 mmHg LVOT VTI 24.06 cm LVOT Peak Driss. 103.9 cm/s NATALIE(VTI)/BSA 2.46 cm2/m2 NATALIE (VTI) 2.46 cm2 AI P 1/2 Time 516 ms AV DI 0.73 % Mitral Valve MV E Velocity 75.3 cm/s MV Peak Gr. 6 mmHg MV DECEL TIME 268 ms MV A Velocity 118.5 cm/s MV PHT 48 ms E/A Ratio 0.6 MVA (PHT) 4.58 cm2 MV VMax 118.9 cm/s TDI Lateral E' P. V 10.61 cm/s E/Lateral E' 7.1 Pulmonary Valve PAEDP 12.24 mmHg Tricuspid Valve TR P. Velocity 257 cm/s RAP ESTIMATE 10 mmHg TR Peak Gr. 26 mmHg RVSP 36 mmHg LEFT VENTRICLE Normal LV size and wall thickness. Overall systolic function is low normal. Overall LVEF is 55%. RIGHT VENTRICLE Right ventricle is appears mildly dilated with normal function. ATRIA The left atrium size is normal. AORTIC VALVE Trileaflet AV appears mildly sclerotic without stenosis. Trace insufficiency. MITRAL VALVE Mitral valve leaflets are mildly thickened with mild annular calcification. No stenosis. Trace regurgitation. TRICUSPID VALVE The tricuspid valve is normal in structure with tracre regurgitation. PULMONIC VALVE The pulmonary valve is normal in structure with trace insufficiency. GREAT VESSELS The aortic root is normal in size. The ascending aorta is normal in size. The IVC is normal in size and collapses >50% with inspiration. PERICARDIUM Normal pericardium. No effusion. Other Information Study Quality: Adequate Conclusion Overall LVEF is 55%. Normal LV size and wall thickness. Overall systolic function is low normal. Right ventricle is appears mildly dilated with normal function. Trileaflet AV appears mildly sclerotic without stenosis. Trace insufficiency. Mitral valve leaflets are mildly thickened with mild annular calcification. No stenosis. Trace regurgitation. The tricuspid valve is normal in structure with tracre regurgitation. The pulmonary valve is normal in structure with trace insufficiency. Normal pericardium. No effusion.
[2025-05-09 22:00] VITALS: BP 124/70; PULSE 61; RESP 19; TEMP 97.3; O2SAT 91
[2025-05-10 06:12] VITALS: BP 141/54; PULSE 61; RESP 19; TEMP 97.4; O2SAT 91
[2025-05-10 06:14] LABS: MEAN PLATELET VOLUME 8.3 FL (7.4-10.4); RED CELL DISTRIBUTION WIDTH 14.6 % (11.5-14.5)
[2025-05-10 06:44] LABS: CREATININE 0.77 MG/DL (0.40-0.90); TOTAL CARBON DIOXIDE 32.2 MMOL/L (24-32); eCRCL 53 ML/MIN; eGFR 73 ML/MIN
[2025-05-10 10:00] VITALS: BP 131/53; PULSE 59; RESP 22; TEMP 97.4; O2SAT 95
[2025-05-10] MEDS: CefTRIAXone/D5W-Rocephin 1gm 50 ML IV SCH (15:04)
[2025-05-10 18:00] VITALS: BP 124/48; PULSE 56; RESP 18; TEMP 97.7; O2SAT 95
--- NOTE | 2025-05-10 18:21 | PROGRESS NOTE- Residence ---
Progress Note - Resident Providers to CC Resident Creating Document: RENETTA MEJIA, JV ~ Central Line/PICC still needed: No Soliman-Non Protocol Soliman Indications Met/Not Met: F/C Indications Not Met Antibiotic Timeout Antibiotic Ordered?: Yes Subjective Patient is much more awake today, she is able to eat her dinner well without any acute distress. She is still is forgetful and has a disturbed train of thought but she has been progressively improving throughout the day today. Objective Vital Signs Date Time Temp Pulse Resp B/P (MAP) Pulse Ox O2 Delivery O2 Flow Rate FiO2 05/10/25 10:00 97.4 59 22 131/53 (79) 95 Room Air 05/09/25 12:10 2.0 05/08/25 13:15 28 Result Diagram: 05/10/25 0545 05/10/25 0545 General: Stuporous but improving mentation, waxing and waning of responsiveness HEENT: Conjunctiva pink, Sclera clear, Mucus Membranes moist. Bilateral pupils equal and reactive to light Resp: Unlabored. Lungs clear to auscultation bilaterally. Heart: Regular Rate and rhythm, normal S1 and S2 with a S3 gallop. Status post Left mastectomy Abdomen: Soft and non tender no organomegaly Extremities: No cyanosis,clubbing or edema. RELIEF MAN: No abnormal movements, no automatisms. Bilateral pupils equal and reactive to light, no cranial nerve deficits. No apparent motor deficits. Skin: Warm and Dry. No rashes Assessment Assessment This is a 79-year-old female patient with a past medical history of seizure diagnosed seven years ago who presented to the [facility] for breakthrough seizures. Plan Plan Breakthrough tonic-clonic seizures: History of atonic seizures Secondary to medication nonadherence Post-ictal state resolved; ongoing confusion secondary to prolonged postictal phase as well as recurrent seizures Switching home medications to p.o.; restart lacosamide 200 mg b.i.d. and clobazam 10 mg HS. Unsure of the valproic acid dose, we will continue 500 mg valproic acid IV at this time and confirm medications in a.m. Continue Valium PRN for repeat breakthrough seizures Switch to regular diet; discontinue LR Seizure precautions in place PT eval and treat in a.m., possible discharge to a rehab due to recurrent breakthrough seizures as well as prolonged postictal phase leading to confusion Uncomplicated UTI: POA Outpatient antibiotic therapy, hence, urine out positive for pyuria Urine culture growing Gram-negative rods Continue Rocephin for three days; 2nd dose Prolonged OH interval: First degree AV block Heart rate between 50s to 60s Unable to evaluate for symptoms at this time Continue Coreg at 3.125 mg b.i.d., the decreased dose Licensed Tax Consultant is Dr Herrera Continue telemetry monitoring Mild acute kidney injury: Resolved Prerenal in etiology Monitor BMP Chronic Heart failure with improved ejection fraction: In no acute exacerbation EF improved from 45% to 55% today on 05/31 from 07/30 CXR clear with no increased pulmonary vascular congestion Continue home medications of losartan, Aldactone, Coreg and Lasix Not on Jardiance or Farxiga, possible etiology due to increased risk of seizures with the same medications. Follow with Cardiology outpatient Continue monitoring on IV fluids for increasing oxygen demand History of left breast cancer status post mastectomy: Chemotherapy 25 years ago Compliant with mammograms every year Hyperglycemia: Resolved Hyperlipidemia No history of diabetes, hyperglycemia secondary to hypermetabolism; resolved. A1c 6.1 LDL elevated 138, total cholesterol 221 Increased atorvastatin dose from 20 mg to 40 mg Lines: PIV Code status: DNR, discussed with the in the daughter regarding the patient's POLST form which states DNR and asked him to bring it in from home or we will requested from Dr. Allen's office Diet: NPO, aspiration precautions DVT prophylaxis: Heparin SQ Renetta Mejia PGY3, Internal medicine resident Patient was seen, examined and discussed with the attending MD, Dr. Boyer Date of Service: May 10, 2025 Billing Provider: SARAN BOYER MD Common Visit Codes: [id number] INP/OBS CARE(HIGH) RENETTA MEJIA, RES May 10, 2025 18:21 SARAN BOYER MD May 11, 2025 06:53
[2025-05-10 20:00] VITALS: RESP 18; O2SAT 95
[2025-05-10] MEDS ORDERED: LACOSAMIDE PO SCH (20:00)
[2025-05-10] MEDS ORDERED: valproate sod inj 500 MG in normal saline 50ml IV soln 50 ML IV SCH (20:00)
[2025-05-10 22:00] VITALS: BP 133/49; PULSE 62; RESP 12; TEMP 98; O2SAT 95
[2025-05-10] MEDS: LACOSAMIDE 50 MG TABLET PO SCH (22:38)
[2025-05-11 06:00] VITALS: BP 130/59; PULSE 54; RESP 12; TEMP 98.2; O2SAT 93
[2025-05-11 06:20] LABS: MEAN PLATELET VOLUME 8.2 FL (7.4-10.4); RED CELL DISTRIBUTION WIDTH 14.4 % (11.5-14.5)
[2025-05-11 06:24] LABS: CREATININE 0.68 MG/DL (0.40-0.90); TOTAL CARBON DIOXIDE 29.5 MMOL/L (24-32); eCRCL 60 ML/MIN; eGFR 84 ML/MIN
[2025-05-11] MEDS ORDERED: piperacillin/tazo 3.375gm/50ml 50 ML IV SCH (08:00)
[2025-05-11] MEDS ORDERED: meropenem inj 500 MG in normal saline 100ml IV soln 100 ML IV SCH (09:00)
[2025-05-11] MEDS ORDERED: MEROPENEM 500MG/50ML-NS IVPB 50 ML IV SCH (09:47)
[2025-05-11 10:00] VITALS: BP 130/54; PULSE 59; RESP 16; TEMP 98; O2SAT 96
[2025-05-11] MEDS: MEROPENEM 500MG/50ML-NS IVPB 50 ML IV SCH (11:05)
[2025-05-11 13:46] LABS: LEUKOCYTE ESTERASE ,URINE MODERATE (Neg); NITRITES, URINE NEGATIVE (Neg); OCCULT BLOOD,URINE TRACE-INTACT (Neg)
[2025-05-11 13:53] LABS: UA COLLECTION TYPE CLN CATCH MIDSTREAM
[2025-05-11 13:54] LABS: MUCUS STRANDS FEW /LPF (Neg); RENAL CELLS, URINE FEW /HPF; SQUAMOUS EPITHELIAL CELL,UR FEW /LPF (FEW)
--- NOTE | 2025-05-11 15:03 | PROGRESS NOTE- Residence ---
Progress Note - Resident Providers to CC Resident Creating Document: TAWNYARENETTA WILBURN, RES ~ Central Line/PICC still needed: No Soliman-Non Protocol Soliman Indications Met/Not Met: F/C Indications Not Met Antibiotic Timeout Antibiotic Ordered?: Yes Subjective Patient continues to have slurring of the speech and altered train of thought. However, she is more awake and alert when compared to last night event. We switched all her medications to p.o. and the patient is tolerating it well. She complains of new right arm anesthesia since today morning. Objective Vital Signs Date Time Temp Pulse Resp B/P (MAP) Pulse Ox O2 Delivery O2 Flow Rate FiO2 05/11/25 10:00 98.0 59 16 130/54 (79) 96 Room Air 05/10/25 20:00 2.0 28 Result Diagram: 05/11/2551305/11/25513 General: Awake and alert, no acute distress HEENT: Conjunctiva pink, Sclera clear, Mucus Membranes moist. Bilateral pupils equal and reactive to light Resp: Unlabored. Lungs clear to auscultation bilaterally. Heart: Regular Rate and rhythm, normal S1 and S2 with a S3 gallop. Status post Left mastectomy Abdomen: Soft and non tender no organomegaly Extremities: No cyanosis,clubbing or edema. THERMAL ENGINEER: Oriented x3. Slurring of speech noted. No abnormal movements, no automatisms. Bilateral pupils equal and reactive to light, no cranial nerve deficits. No apparent motor deficits. Skin: Warm and Dry. No rashes Assessment Assessment This is a 79-year-old female patient with a past medical history of seizure diagnosed seven years ago who presented to the [facility] for breakthrough seizures. She additionally developed new onset I am anesthesia which is currently being evaluated for acute stroke. Plan Plan Breakthrough tonic-clonic seizures: History of atonic seizures Secondary to medication nonadherence Postictal state resolved; ongoing confusion secondary to prolonged postictal phase as well as recurrent seizures Continue home medication of lacosamide 200mg BID, clobazam 10mg HS, and Depakote 500 mg extended release daily Continue Valium PRN for repeat breakthrough seizures Seizure precautions in place Discharge to rehab when medically stable New onset right arm anesthesia: Likely post seizure induced Stroke ruled out Negative head CT on admission MRI head negative. Follow up vascular ultrasound During suspicion, patient received one time aspirin 325 mg. We will stop further aspirin doses Continue atorvastatin 40 mg daily Uncomplicated UTI: POA Failed outpatient antibiotic therapy Urine culture revealed presence of E coli, MDRO Switched antibiotics to meropenem b.i.d. IV Requires outpatient antibiotic therapy for one week Midline in place today on 05/11/2025 Prolonged OH interval: First degree AV block Asymptomatic Heart rate between 50s to 60s Continue Coreg at 3.125 mg b.i.d., decreased from home dosage of 6.25 mg Departure Clerk is Dr Herrera Continue telemetry monitoring Mild acute kidney injury: Resolved Prerenal in etiology Monitor BMP Chronic Heart failure with improved ejection fraction: In no acute exacerbation EF improved from 45% to 55% today on 05/31 from 07/30 CXR clear with no increased pulmonary vascular congestion Continue home medications of losartan, Aldactone, Coreg and Lasix Not on Jardiance or Farxiga, possible etiology due to increased risk of seizures with the same medications. Follow with Cardiology outpatient History of left breast cancer status post mastectomy: Chemotherapy 25 years ago Compliant with mammograms every year Hyperglycemia: Resolved Hyperlipidemia No history of diabetes, hyperglycemia secondary to hypermetabolism; resolved. A1c 6.1 LDL elevated 138, total cholesterol 221 Increased atorvastatin dose from 20 mg to 40 mg Lines: PIV Code status: DNR, discussed with the in the daughter regarding the patient's POLST form which states DNR and asked him to bring it in from home or we will requested from Dr. Allen's office Diet: NPO, aspiration precautions DVT prophylaxis: Heparin SQ Renetta Mejia PGY3, Internal medicine resident Patient was seen, examined and discussed with the attending MD, Dr. Boyer Date of Service: May 11, 2025 Billing Provider: SARAN BOYER MD Common Visit Codes: [id number] INP/OBS CARE(HIGH) RENETTA MEJIA, RES May 11, 2025 15:03 SARAN BOYER MD May 12, 2025 08:45
--- NOTE | 2025-05-11 17:17 | RADIOLOGY REPORT ---
EXAM: MR MRI HEAD HISTORY: ams COMPARISON: CT CT HEAD on DOS: 05/08/25, CT CT HEAD on DOS: 10/01/23, MRI HEAD on DOS: 03/17/19 TECHNIQUE: MRI was performed utilizing multiple appropriate imaging planes and pulse sequences. FINDINGS: No areas of restricted diffusion. There is generalized parenchymal volume loss with prominence of the sulci and ventricles. There is no acute intracranial hemorrhage, extra-axial fluid collection, mass effect, or midline shift. There is minimal T2/FLAIR periventricular and subcortical white matter hyperintensity. The intraorbital structures are unremarkable. The paranasal sinuses and mastoid air cells are clear. The intracranial flow voids are preserved. The susceptibility weighted images are severely limited due to motion. IMPRESSION: No acute intracranial process identified. Generalized parenchymal volume loss Mild chronic ischemic white matter change
[2025-05-11 18:00] VITALS: BP 135/73; PULSE 63; RESP 16; TEMP 98.4; O2SAT 96
--- NOTE | 2025-05-11 18:32 | VASCULAR REPORT ---
CLINICAL HISTORY: Carotid stenosis, seizure TECHNIQUE: Vanessa-scale, Color and Duplex Doppler imaging of the bilateral carotid systems was performed. WID: COMPARISON: None Findings: Right Carotid system: no significant atherosclerotic plaque. Left Carotid system: No significant atherosclerotic plaque The right and left common carotid and external carotid arteries are patent. There is antegrade flow in both vertebral arteries and external carotid arteries. The following flow velocities were obtained (cm/sec). Right Carotid System: Hyperdynamic common carotid artery with systolic of 108 ICA PSV: Peak Systolic Velocity 89 ICA/CCA Ratio: ICA/CCA Ratio 1.2 Left Carotid System: Hyperdynamic left common carotid artery velocity with systolic of 145 cm/sec ICA PSV: Peak Systolic Velocity 117 ICA/CCA Ratio: ICA/CCA Ratio 1.2 IMPRESSION: No evidence of hemodynamically significant stenoses. Hyperdynamic common carotid artery velocities. Estimation of carotid stenosis is based on velocity parameters that correlate the residual internal carotid diameter with that of the more distal vessel in accordance with the [place] Symptomatic Carotid Endarterectomy Trial (NASCET).
[2025-05-11 22:00] VITALS: BP 126/58; PULSE 60; RESP 15; TEMP 97.3; O2SAT 93
[2025-05-12 06:00] VITALS: BP 132/67; PULSE 51; RESP 14; TEMP 96.3; O2SAT 94
[2025-05-12 07:30] VITALS: PULSE 63
[2025-05-12 08:00] VITALS: RESP 16; O2SAT 95
[2025-05-12] MEDS ORDERED: aspirin 81mg, enteric-coated 1 TAB TABLET.DR PO SCH (08:00)
[2025-05-12] MEDS: divalproex sod 250mg ER (24-hour) tablet PO SCH (08:15)
[2025-05-12 09:32] VITALS: BP 147/71; PULSE 60; RESP 15; TEMP 98.3; O2SAT 94
--- NOTE | 2025-05-12 15:48 | DISCHARGE SUMMARY-Residence ---
Discharge Summary Providers to CC Resident Creating Document: EVELIN PÉREZJV ~ Discharge Summary Admission Diagnosis: Recurrent seizures Hospital Course DATE OF ADMISSION: 05/08/25 DATE OF DISCHARGE: 05/12/25 Discharge Diagnosis\Comment: Breakthrough seizure secondary to inability to obtain prescription medications on time E coli MDRO UTI treated with meropenem Stroke ruled out; slurring of speech and right upper and lower extremity and seizure secondary to postictal phenomena/interictal phenomena New onset Hallucinations secondary to intractable phenomenon Mild acute kidney injury; resolved First-degree AV block History of left breast cancer status post mastectomy, hyperlipidemia Hyperglycemia; resolved Operations\Procedures: EEG Consultants: Neurology Complications: None Condition on DC: Stable for transfer Discharge Summary: This is a 79-year-old female patient with a past medical history heart failure with moderately reduced ejection fraction and adult onset seizure disorder over the last 10 years of unknown etiology presents to the hospital due to four episodes of breakthrough seizures with regaining of consciousness between the seizures after she ran out of medications and remained without any medications for four days prior to coming into the hospital. The patient had different hero acteristic offered seizures which are usually atonic or absent in nature but this time she presented with diffuse generalized tonic-clonic seizures. Due to the numerous number of seizures and her age, she was in a prolonged post-ictal phase for upto 24 hours. On admission, her home medications were continued in IV form until she was in the post-ictal phase and then later switched to PO after regaining consciousness fully. A CT head obtained at admission was negative for any intracranial abnormalities. After awakening, she reported development of new onset right sided anaesthesia. The possibility of stroke was evaluated using a MRI head which was negative and a CTA head which showed no large vessel occlusions. She also later on the day of discharge reported symptoms of new onset hallucinations which were considered likely secondary to an interictal phase. Additionally, prior to admission, she was tretaed with antibiotics for a UTI. Review of analysis in the hospital revealed bacteriuria and grew MDRO E coli sensitive to meropenem and ertapenem. She was started on meropenem based upon NASRA results, and a midline was placed for continued antibiotic therapy. The other additional findings during hospitalization included prolonged MA interval first-degree AV block and mild acute kidney injury that resolved. The patient is able to ambulate on her own but had risk of increased instability and falls. Due to this reason, she was considered unsafe for discharge back home and was discharged to a SNF in a stable condition. Advised at discharge: Daily PT eval and treat, repeat CBC and CMP in one week. Continue antibiotics IV through the midline for seven days. Follow up with PCP in one week. Schedule an appointment with the neurologist as soon as possible. Plan for discharge back home only after availability of antiepileptics at home. Physical exam at discharge: General: Awake and alert, no acute distress HEENT: Conjunctiva pink, Sclera clear, Mucus Membranes moist. Bilateral pupils equal and reactive to light Resp: Unlabored. Lungs clear to auscultation bilaterally. Heart: Regular Rate and rhythm, normal S1 and S2 with a S3 gallop. Status post Left mastectomy Abdomen: Soft and non tender no organomegaly Extremities: No cyanosis,clubbing or edema. COMPUTING ARCHITECT: Oriented x3. Slurring of speech noted. No abnormal movements, no automatisms. Bilateral pupils equal and reactive to light, no cranial nerve deficits. No apparent motor deficits. Sensory deficits of superficial touch on the right upper and lower limb, deep touch sensations preserved. Skin: Warm and Dry. No rashes Labs at discharge: WBC 6.0, RBC 3.4, hemoglobin 9.4, platelets 153 Sodium 136, potassium 3.8, chloride 102, bicarb 9.5, BUN 10, creatinine 0.6, blood glucose 104 Medications at discharge: Depakote 500 mg daily, lacosamide 200 mg b.i.d., clobazam 10 mg HS, meropenem b.i.d. IV, atorvastatin 40 mg daily, Coreg 3.125 mg b.i.d., losartan 100 mg gabriele y, Lexapro 20 mg daily, Aldactone 25 mg daily, Colace PRN, Tylenol PRN *Problems/Diagnosis: (1) Seizure disorder Status: Acute (2) UTI (urinary tract infection) Status: Acute Total Time Spent on D/C: Up to 30 Minutes Date of Service: May 12, 2025 Billing Provider: SARAN BOYER MD Common Visit Codes: [id number]-[id number] DISCH DAY >30min Problem Qualifiers (1) UTI (urinary tract infection): Urinary tract infection type: site unspecified Hematuria presence: without hematuria Qualified Codes: N39.0 - Urinary tract infection, site not specified EVELIN PÉREZ RES May 12, 2025 15:45 SARAN BOYER MD May 13, 2025 08:33
== END 2025-05-12 15:20 | DRG 101 ==
LOC: ER 13:13 → UNDOADMIN 16:42 → ED HOLD 16:42 → PCU 3S 21:18 → ORTHO 4S 05-09 12:00
PROVIDERS: ADMIT Internal Medicine; ATTEND Internal Medicine
PROC: 4A00X4Z Measurement of Central Nervous Electrical Activity, External Approach (ICD-10-PCS; principal; 2025-05-09)
PROC: 05HD33Z Insertion of Infusion Device into Right Cephalic Vein, Percutaneous Approach (ICD-10-PCS; 2025-05-11)
PROC: B54MZZA Ultrasonography of Right Upper Extremity Veins, Guidance (ICD-10-PCS; 2025-05-11)
DX: G40.409 Other generalized epilepsy and epileptic syndromes, not intractable, without status epilepticus (principal); N17.9 Acute kidney failure, unspecified; Z66 Do not resuscitate; N39.0 Urinary tract infection, site not specified; B96.20 Unspecified Escherichia coli [E. coli] as the cause of diseases classified elsewhere; I50.22 Chronic systolic (congestive) heart failure; I11.0 Hypertensive heart disease with heart failure; F32.A Depression, unspecified; Z16.35 Resistance to multiple antimicrobial drugs; R73.9 Hyperglycemia, unspecified; K21.9 Gastro-esophageal reflux disease without esophagitis; M10.9 Gout, unspecified; I44.0 Atrioventricular block, first degree; R06.89 Other abnormalities of breathing; E86.0 Dehydration; E78.00 Pure hypercholesterolemia, unspecified; I25.10 Atherosclerotic heart disease of native coronary artery without angina pectoris; Z88.8 Allergy status to other drugs, medicaments and biological substances; Z91.148 Patient's other noncompliance with medication regimen for other reason; Z85.3 Personal history of malignant neoplasm of breast; Z90.12 Acquired absence of left breast and nipple
CPT/HCPCS: 36410; 36415; 70450; 70551; 71045; 76937; 80048; 80061; 80164; 80305; 81001; 82948; 83036; 83735; 83880; 84145; 84443; 85025; 85651; 86140; 87077; 87081; 87088; 87186; 92508; 92616; 93005; 93306; 93880; 95816; 97116; 97161; 97530; 99285; A4615; A6212; A6213; C1751; C9254; G0378; J0696; J1644; J2060; J2185; J3490; J7030; J7042; J7121